=== PATIENT | male | born 1960 | race Caucasian/White ===

== ENCOUNTER 2019-01-11 12:23 | Emergency (ER) | payer BC ==
--- OUTSIDE RECORDS SUMMARY | 2019-01-11 12:34 | XMS REPORT ---
:1960 Author Organization eClinicalWorks Care Team Providers Name Role Phone Violeta Ortezh Provider Role Unavailable Allergies, Adverse Reactions, Alerts Substance Reaction Event Type N.K.D.A. 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 Problem Gastro-esophageal reflux disease K21.9 Active without esophagitis Problem Gastritis K29.70 Active Problem Obesity (BMI 30-39.9) E66.9 Active Assessment Noncompliance w/medication Z91.14 Active treatment due to intermit use of medication 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 Assessment Hyperlipidemia E78.5 Active Assessment Obstructive sleep apnea G47.33 Active Assessment Benign essential HTN I10 Active Assessment Tobacco use disorder F17.200 Active Medications Medication Code Code Instructions Start End Status Dosage System Date Date [facility] 40465146775 5 Active 1 EACH ONCE A DAY ORALLY Singulair [facility] 04304913398 10 MG Orally Active 1 tablet Once a day in the evening Chantix [facility] 27960799103 1 MG Orally Aug 08October Active 1 tablet Continuing Twice a day 2017 Month 2019 ProAir HFA [facility] 29576685736 108 (90 Base) Active 2 puffs MCG/ACT Inhalation every 4-6 hrs [facility]n [facility] 5 MG Orally Active 1 tablet Once a day Lisinopril [facility] 20098683912 40 Active TAKE 1 TABLET BY MOUTH EVERY DAY Crestor [facility] 45743952895 10 MG Orally Active 1 tablet Once a day Dexilant [facility] 56174571444 60 MG Orally Active 1 capsule Once a day Chantix [facility] [address]-28 Active not Starting Month Antwon Chantix [facility] 62793104429 0.5 MG X 11 & 1 Inactive not Starting Month MG X 42 Orally defined Antwon Flonase [facility] 16792860556 50 MCG/ACT Active 1 spray Nasally Once a in each day nostril Zyrtec Allergy [facility] 22513446111 10 MG Orally Active 1 tablet Once a day Lisinopril [facility] 92948962528 40 MG Orally Active 1 tablet Once a day Gemfibrozil [facility] 32119013379 600 MG Orally Active 1 tablet Twice a day Results No Known Results Summary Purpose eClinicalWorks Submission
--- OUTSIDE RECORDS SUMMARY | 2019-01-11 12:34 | XMS REPORT ---
:1960 [facility] Address [address] [place] [address] Dr. [address] [place] [address] Care Team Providers Name Role Phone YENNI LEE Unavailable Unavailable Problems This patient has no known problems. Allergies, Adverse Reactions, Alerts This patient has no known allergies or adverse reactions. Medications This patient has no known medications. Results Test Description Test Time Test Comments Text Results Atomic Results Result Comments TISSUE EXAM 2018-12-28 09:06:00 Surgical Pathology Report Case: [id number] Authorizing Provider: Yenni Lee MD Collected: 12/21/2018 1025 Ordering Location: [facility] Received: 12/21/2018 1118 SERVICES Pathologist: Philippe Jacobo MD Specimen: Adrenal, Right PART A RIGHT ADRENAL, ADRENALECTOMY (45.7 G):ADRENOCORTICAL ADENOMA WITH CYSTIC DEGENERATION.NEGATIVE FOR MALIGNANCY. Signing Pathologist Direct Phone Line: [phone] signed by Philippe Jacobo MD on 12/28/2018 at 9:06 AMImmunohistochemical studies performed on block A4 demonstrate the adrenal cortical cells to be positive for calretinin, inhibin, and synaptophysin (partial). They are negative for PAX8 and S100. CD68 is positive in scattered macrophages.This case was reviewed with Dr. Sly Back, who concurs with the above interpretation. 05209, 73253, [id number] adrenalectomy, laparoscopic right adrenalectomy. Preoperative and postoperative diagnosis is renal mass, rightAdrenal, right tissue Received in formalin labeled "adrenal right" is a 45.7 gm, 8.5 x 3.5 x 3.5 cm adrenal gland with attached adipose tissue measuring 4 x 3 x 0.8 cm. The central portion of the specimen is fragmented to reveal central protruding red-brown tissue. The specimen is serially sectioned to reveal a clarke-yellow, ovoid, encapsulated, subcortical to medullary mass, which measures 4.5 x 3.2 x 2.5 cm. The specimen is 25% multiloculated cystic with the chambers containing burr-brown solid to friable and possibly fibrinous material. The mass abuts the inked margin.The cortex measures 0.2 cm thick. The medullary region measures 0.5 cm thick. There are no solid nodules or lymph nodes seen within the attached adipose tissue.Ink code: Margin is inked leo.Printing Equipment Mechanic sections are submitted from the specimen.Section code: A1-A2, cortical portion of tumor; A3, cortical to medullary portion of tumor to include multiloculated portion of the specimen; A4, additional tumor with attached margin; A5-A6, central portion of tumor; A7, normal adrenal gland.Gross photographs are taken. KM/ewPerformed. The interpretation of this case included the use of immunohistochemistry or special stains.BLOCK A4- INHIBIN, CALRETININ, SYNAPTOPHYSIN, CD68, S100, AFE6Lopivpr Slides Examined: In-house known positive controls were evaluated along with the test tissue. These control slides run alongside of the patients sample show appropriate staining. Internal positive and negative controls when available are evaluated Immunohistochemistry technical testing was performed at [facility], Pathology Laboratory where it was developed and its performance characteristics were determined. It has not been cleared or approved by the U.S. Food and Drug Administration. The FDA has determined that such clearance or approval is not necessary. The test is used for clinical purposes. It should not be regarded as investigational or for research. This laboratory is certified under the Clinical Laboratory Improvement Amendments of 1988 (CLIA-88) as qualified to perform high complexity clinical laboratory testing. ELECTROLYTES 2018-12-18 14:40:00 Test Item Value Reference Range Comments SODIUM (BEAKER) (test snxx=875) 137 meq/L 136-145 POTASSIUM (BEAKER) (test vqhz=885) 4.3 meq/L 3.5-5.1 Specimen slightly hemolyzed CHLORIDE (BEAKER) (test dslk=598) 102 meq/L 98-107 CO2 (BEAKER) (test ldcj=509) 24 meq/L 22-29 BUN AND [id number] 14:40:00 Test Item Value Reference Range Comments BLOOD UREA NITROGEN 14 mg/dL 7-21 (BEAKER) (test knnx=928) CREATININE (BEAKER) (test 1.00 mg/dL 0.57-1.25 Specimen slightly atyq=259) hemolyzed EGFR (BEAKER) (test 77 mL/min/1.73 sq m ESTIMATED GFR IS NOT syss=2544) ACCURATE CREATININE CLEARANCE IN PREDICTING GLOMERULAR FILTRATION RATE. ESTIMATED GFR IS NOT APPLICABLE FOR DIALYSIS PATIENTS. [id number] 14:23:00 Test Item Value Reference Range Comments HEMOGLOBIN (BEAKER) (test tblr=338) 12.9 GM/DL 13.7-17.5
--- OUTSIDE RECORDS SUMMARY | 2019-01-11 12:34 | XMS REPORT | Clinical Summary ---
:1960 Author Organization [facility] Address [address] [place] [address] Care Team Providers Name Role Phone Tanvir Ortez DO Primary Care Provider Allergies No Known Allergies Medications Medication Sig Dispensed Refills Start Date End Date Status amLODIPine (NORVASC) Take 5 mg by 0 Active 5 MG tablet mouth daily. dexlansoprazole 60 mg Take 60 mg by 0 Active capsule mouth daily. gemfibrozil (LOPID) Take 600 mg 0 Active 600 MG tablet by mouth 2 (two) times daily before meals. lisinopril Take 40 mg by 0 Active (PRINIVIL,ZESTRIL) 40 mouth daily. MG tablet montelukast Take 10 mg by 0 Active (SINGULAIR) 10 mg mouth tablet nightly. rosuvastatin Take 10 mg by 0 Active (CRESTOR) 10 MG mouth daily. tablet varenicline (CHANTIX) Take 1 mg by 0 Active 1 mg tablet mouth daily Give with meals and with a full glass of water. . traMADol (ULTRAM) 50 Take 2 35 tablet 0 12/22/2018 Active mg tablet tablets (100 mg total) by mouth every 6 (six) hours as needed for up to 30 doses. Max Daily Amount: 400 mg traMADol (ULTRAM) 50 Take 2 30 tablet 0 12/22/2018 Discontinued mg tablet tablets (100 9 mg total) by mouth every 6 (six) hours as needed for up to 30 doses. Max Daily Amount: 400 mg Active Problems Problem Noted Date Right adrenal mass 12/21/2018 Encounters Date Type Specialty Care Team Description 12/21/2018 Surgery Pavel Luo LAPAROSCOPY,ADRENAL H, ECTOMY 12/21/2018 Anesthesia Event Sharri Teran CRNA 12/21/2018 - Hospital Encounter General Internal Pavel Luo 12/22/2018 Medicine MD Olivia 12/18/2018 Hospital Encounter Cardiology Pavel Luo MD 12/18/2018 Hospital Encounter Pre-Admission Pavel Luo MD 12/18/2018 Orders Only General Internal Medicine 12/13/2018 Hospital Encounter Pre-Admission Resource, Oqmt Testing Preadmit Phone after 01/10/2018 Social History Tobacco Use Types Packs/Day Years Used Date Former Smoker Smokeless Tobacco: Never Used Comments: quit 07/2018 Alcohol Use Drinks/Week oz/Week Comments Yes 28 Shots of liquor 16.8 Sex Assigned at Date Recorded Not on file Job Start Date Occupation Industry Not on file Not on file Not on file Travel History Travel Start Travel End No recent travel history available. Last Filed Vital Signs Vital Sign Reading Time Taken Blood Pressure 124/78 12/22/2018 9:03 AM CDT Pulse 89 12/22/2018 9:03 AM CDT Temperature 35.9 C (96.6 F) 12/22/2018 9:03 AM CDT Respiratory Rate 21 12/22/2018 9:03 AM CDT Oxygen Saturation 95% 12/22/2018 9:03 AM CDT Inhaled Oxygen Concentration - - Weight 131 kg (288 lb 12.8 oz) 12/21/2018 6:09 AM CDT Height 185.4 cm (6' 1") 12/21/2018 6:09 AM CDT Body Mass Index 38.1 12/21/2018 6:09 AM CDT Plan of Treatment Not on file Procedures Procedure Name Priority Date/Time Associated Comments Diagnosis RHYTHM STRIP - SCAN 12/25/2018 4:20 PM CDT TRANSFUSION SERVICE 12/22/2018 6:00 REPORT - SCAN PM CDT TISSUE EXAM AP Routine 12/21/2018 10:25 Results for this AM CDT procedure are in the results section. LAPAROSCOPY,ADRENALE 12/21/2018 8:00 Adrenal mass, right CTOMY AM CDT (HCC) Case Notes 3 HRS PER [facility] STAT 12/21/2018 6:47 AM CDT TRANSFUSION SERVICE REPORT 12/19/2018 6:21 PM CDT - SCAN ECG 12-LEAD Routine 12/18/2018 2:08 PM CDT Procedure Note - Interface, External Ris In - 12/18/2018 4:25 PM CDT Ventricular Rate 108 BPM Atrial Rate 108 BPM P-R Interval 174 ms QRS Duration 80 ms Q-T Interval 322 ms QTC Calculation(Bazett) 431 ms P [place] 55 degrees R [place] 14 degrees T [place] 53 degrees Sinus tachycardia Otherwise normal ECG When compared with ECG of 14-JAN-2006 09:33, Vent. rate has increased BY 39 BPM ECG 12-LEAD Routine 12/18/2018 2:08 PM CDT TYPE AND SCREEN, AUTOMATED Routine 12/18/2018 2:05 PM CDT HEMOGLOBIN Routine 12/18/2018 2:05 PM CDT ELECTROLYTE PANEL Routine 12/18/2018 2:05 PM CDT BUN AND CREATININE Routine 12/18/2018 2:05 PM CDT after 01/10/2018 Results RHYTHM STRIP - SCAN (12/25/2018 4:20 PM CDT) Narrative Performed At TRANSFUSION SERVICE REPORT - SCAN (12/22/2018 6:00 PM CDT)Only the most recent of2 resultswithin the time period is included. Narrative Performed At Tissue Exam (12/21/2018 10:25 AM CDT) Case Report Surgical Pathology Report Case: [id number] [facility] Authorizing Provider:Pavel Luo MD Collected: 12/21/2018 1025 [facility] Ordering Location: [facility] PERIOPERATIVE Received: 12/21/2018 1118 SERVICES Pathologist: Philippe Jacobo MD Specimen:Adrenal, Right DIAGNOSIS PART A RIGHT ADRENAL, ADRENALECTOMY (45.7 G): [facility] ADRENOCORTICAL ADENOMA WITH CYSTIC DEGENERATION. [facility] NEGATIVE FOR MALIGNANCY. Signing Pathologist Direct Phone Line: [phone] COMMENT Immunohistochemical studies performed on block A4 demonstrate the adrenal cortical cells to be positive for calretinin, inhibin, and synaptophysin (partial). They are negative for PAX8 and S100. CD68 is positive in scattered macrophages. [facility] This case was reviewed with Dr. Sly Back, who concurs with the above interpretation. CPT Code(s) 42920, 00967, 50078i5 [facility] CLINICAL HISTORY Laparoscopic adrenalectomy, [facility] laparoscopic right [facility] adrenalectomy. Preoperative and postoperative diagnosis is renal mass, right SPECIMEN SOURCE Adrenal, right tissue [facility] GROSS DESCRIPTION Received in formalin labeled "adrenal right" is a 45.7 gm, 8.5 x 3.5 x 3.5 cm adrenal gland with attached adipose tissue measuring 4 x 3 x 0.8 cm. The central portion of the specimen is fragmented to re [facility] veal central protruding red-brown tissue. The specimen is serially sectioned to reveal a clarke-yellow, ovoid, encapsulated, subcortical to medullary mass, which measures 4.5 x 3.2 x 2.5 cm. The specime [facility] n is 25% multiloculated cystic with the chambers containing burr-brown solid to friable and possibly fibrinous material. The mass abuts the inked margin. The cortex measures 0.2 cm thick. The medullary region measures 0.5 cm thick. There are no solid nodules or lymph nodes seen within the attached adipose tissue. Ink code: Margin is inked leo. Hvac Design Mechanical Engineer sections are submitted from the specimen. Section code: A1-A2, cortical portion of tumor; A3, cortical to medullary portion of tumor to include multiloculated portion of the specimen; A4, additional tumor with attached margin; A5-A6, central portion of tumor; A7, normal adrenal gland. Gross photographs are taken. KM/ew MICROSCOPIC DESCRIPTION Performed. [facility] SPECIAL STUDIES The interpretation of this case included the use of immunohistochemistry or special stains. [facility] BLOCK A4- INHIBIN, CALRETININ, SYNAPTOPHYSIN, CD68, S100, PAX8 [facility] Control Slides Examined: In-house known positive controls were evaluated along with the test tissue. These control slides run alongside of the patients sample show appropriate staining. Internal posit cisco and negative controls when available are evaluated Immunohistochemistry technical testing was performed at [facility], Pathology Laboratory where it was developed and its performance characteristics were determined. It has not be en cleared or approved by the U.S. Food and Drug Administration. The FDA has determined that such clearance or approval is not necessary. The test is used for clinical purposes. It should not be regarde d as investigational or for research. This laboratory is certified under the Clinical Laboratory Improvement Amendments of 1988 (CLIA-88) as qualified to perform high complexity clinical laboratory testing. Specimen Tissue Performing Organization Address City/[facility]/Zipcode Phone Number [address] [address] [phone] CENTER [place], manual (12/21/2018 6:47 AM CDT) ABO Grouping O [facility] Rh Factor POS [facility] Specimen Blood Performing Organization Address [facility] [place] Phone Number [address] [address] [phone] ECG 12 lead (12/18/2018 2:08 PM CDT) Specimen Narrative Performed At Ventricular Rate 108 BPM GE MUSE Atrial Rate 108 BPM P-R Interval 174 ms QRS Duration 80 ms Q-T Interval 322 ms QTC Calculation(Bazett) 431 ms P [place] 55 degrees R [place] 14 degrees T [place] 53 degrees Sinus tachycardia Nonspecific ST abnormality When compared with ECG of 14-JAN-2006 09:33, Vent. rate has increased BY39 BPM Confirmed by Moi MARTINEZ BASANT ([id number]) on 12/19/2018 7:10:33 AM Procedure Note Interface, External Ris In - 12/19/2018 7:10 AM CDT Ventricular Rate 108 BPM Atrial Rate 108 BPM P-R Interval 174 ms QRS Duration 80 ms Q-T Interval 322 ms QTC Calculation(Bazett) 431 ms P [place] 55 degrees R [place] 14 degrees T [place] 53 degrees Sinus tachycardia Nonspecific ST abnormality When compared with ECG of 14-JAN-2006 09:33, Vent. rate has increased BY 39 BPM Confirmed by Moi MARTINEZ BASANT ([id number]) on 12/19/2018 7:10:33 AM Performing Organization Address City/[facility] Phone Number GE MUSE Type and screen, automated (12/18/2018 2:05 PM CDT) ABO/RH AUTOMATED (BEAKER) O POSITIVE [facility] Ab Scrn NEGATIVE [facility] Specimen Blood Performing Organization Address City/State/Zipcode Phone Number [address] [address] BUN and Creatinine (12/18/2018 2:05 PM CDT) BUN 14 7 - 21 mg/dL [facility] Creatinine 1.00Comment: Specimen 0.57 - 1.25 mg/dL [facility] slightly hemolyzed [facility] EGFR 77Comment: ESTIMATED GFR IS mL/min/1.73 sq m [facility] NOT ACCURATE CREATININE [facility] CENTER CLEARANCE IN PREDICTING GLOMERULAR FILTRATION RATE. ESTIMATED GFR IS NOT APPLICABLE FOR DIALYSIS PATIENTS. Specimen Blood Performing Organization Address City/[facility]/Zipcode Phone Number [address] [address] [phone] CENTER Hemoglobin (12/18/2018 2:05 PM CDT) Hemoglobin 12.9 (L) 13.7 - 17.5 GM/DL [facility] Specimen Blood Performing Organization Address City/[facility]/Zipcode Phone Number [address] [address] [phone] CENTER Electrolytes (12/18/2018 2:05 PM CDT) Sodium 137 136 - 145 meq/L [facility] Potassium 4.3Comment: Specimen slightly 3.5 - 5.1 meq/L [facility] hemolyzed [facility] Chloride 102 98 - 107 meq/L [facility] CO2 24 22 - 29 meq/L [facility] Specimen Blood Performing Organization Address City/State/Zipcode Phone Number [address] [address] [phone] CENTER after 01/10/2018 Insurance Payer Benefit Plan / Subscriber ID Type Phone Address Group BLUE CROSS/BLUE BCBS PPO POS EPO xxxxxxxxxxxx PPO [phone] [address] [place] [address] Advance Directives For more information, please contact:[address] [phone] Code Status Date Activated Date Inactivated Comments Full Code 12/21/2018 1:30 PM 12/22/2018 1:56 PM This code status was determined by: Patient Full Code 12/21/2018 6:29 AM 12/21/2018 1:30 PM This code status was determined by: Patient
--- OUTSIDE RECORDS SUMMARY | 2019-01-11 12:35 | XMS REPORT ---
:1960 Author Organization eClinicalWorks Care Team Providers Name Role Phone Pérez [facility] Provider Role Unavailable Allergies, Adverse Reactions, Alerts Substance Reaction Event Type N.K.D.A. 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 Problem Gastro-esophageal reflux disease K21.9 Active without esophagitis Problem Allergic rhinitis, unspecified J30.9 Active seasonality, unspecified trigger Problem Alcohol abuse F10.10 Active Assessment Benign essential HTN I10 Active Assessment 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 23846766372 10 MG Orally Active 1 tablet Once a day in the evening Gemfibrozil [facility] 26161800819 600 Orally Twice Active 1 tablet a day ProAir HFA [facility] 55594684256 108 (90 Base) Active 2 puffs MCG/ACT Inhalation every 4-6 hrs prn Lisinopril [facility] 23885176583 40 MG Orally Active 1 tablet Once a day Norvasc [facility] 77815987480 5 MG Orally Once Active 1 tablet a day Chantix [facility] 87218097828 1 MG Orally Active 1 tablet Continuing Twice a day Month [facility]25868 10 Orally Once a Active 1 tablet day Dexilant [facility] 90636677805 60 MG Orally Active 1 capsule Once a day Montelukast [facility] 44661314575 10 MG Orally Oct 04, Active 1 tablet Sodium Once a day 2018 Zyrtec Allergy [facility] 49546922281 10 MG Orally Active 1 tablet Once a day Flonase [facility] 42264352167 50 MCG/ACT Active 1 spray in Nasally Once a each day nostril Gemfibrozil [facility] 24370083524 600 MG Orally Active 1 tablet Twice a day Results No Known Results Summary Purpose eClinicalWorks Submission
--- OUTSIDE RECORDS SUMMARY | 2019-01-11 12:35 | XMS REPORT ---
:1960 Author Organization eClinicalWorks Care Team Providers Name Role Phone Pérez Tanvir Provider Role Unavailable Allergies No Known Allergies Problems Problem Type Condition Code Onset Dates Condition Status Problem Allergic rhinitis J30.9 Active Problem Tobacco use disorder F17.200 Active Problem Hyperlipidemia E78.5 Active Problem Obesity (BMI 30-39.9) E66.9 Active Problem Gastritis K29.70 Active Problem Benign essential HTN I10 Active Problem Allergic rhinitis, unspecified J30.9 Active seasonality, unspecified trigger Problem Alcohol abuse F10.10 Active Problem Adrenal mass E27.9 Active Problem Obstructive sleep apnea G47.33 Active Problem Tubular adenoma D36.9 Active 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
--- OUTSIDE RECORDS SUMMARY | 2019-01-11 12:35 | XMS REPORT ---
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 Problem Allergic rhinitis, unspecified J30.9 Active seasonality, unspecified trigger Problem Tubular adenoma D36.9 Active Problem Tobacco use disorder F17.200 Active Problem Gastro-esophageal reflux disease K21.9 Active without esophagitis Problem Obstructive sleep apnea G47.33 Active Medications Medication Code Code Instructions Start End Date Status Dosage System Date Azithromycin [facility] 62486931771 250 MG Orally Oct 10, Oct 15, Active 2 tablets Once a day 2018 2018 on the first day, then 1 tablet daily for 4 days Results No Known Results Summary Purpose eClinicalWorks Submission
--- OUTSIDE RECORDS SUMMARY | 2019-01-11 12:35 | XMS REPORT ---
:1960 Author Organization eClinicalWorks Care Team Providers Name Role Phone OrtezVioletah Provider Role Unavailable Allergies, Adverse Reactions, Alerts Substance Reaction Event Type N.K.D.A. 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 Assessment Encounter for screening for lung Z12.2 Active cancer Problem Allergic rhinitis, unspecified J30.9 Active seasonality, unspecified trigger Problem Tubular adenoma D36.9 Active Problem Tobacco use disorder F17.200 Active Problem Gastro-esophageal reflux disease K21.9 Active without esophagitis Problem Obstructive sleep apnea G47.33 Active Assessment Tobacco use disorder F17.200 Active 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 Assessment Noncompliance w/medication Z91.14 Active treatment due to intermit use of medication Assessment Obstructive sleep apnea G47.33 Active Assessment Well adult health check Z00.00 Active Assessment Hyperlipidemia E78.5 Active Problem Obesity (BMI 30-39.9) E66.9 Active Assessment Benign essential HTN I10 Active Problem Gastritis K29.70 Active Medications Medication Code Code Instructions Start End Status Dosage System Date Date Zyrtec Allergy [facility] NAMED [facility] 17467763579 10 MG Orally Active 1 tablet Once a day Singulair FORMER[facility] NAMED [facility] 15726521859 10 MG Orally Active 1 tablet Once a day in the evening Crestor FORMERLY NAMED [facility] 87972490163 10 MG Orally Active 1 tablet Once a day Norvasc FORMER[facility] NAMED [facility] 05375940998 5 MG Orally Active 1 tablet Once a day Lisinopril FORMER[facility] NAMED [facility] 13757575181 40 Orally Once Active 1 tablet a day Gemfibrozil FORMERLY NAMED [facility] 64382879115 600 Orally Active 1 tablet Twice a day Crestor FORMER[facility] NAMED [facility] 21017738436 10 Orally Once Active 1 tablet a day Chantix FORMERLY NAMED [facility] [address]-24 Active not Starting Month defined Antwon Lisinopril FORMERLY NAMED [facility] 78703794875 40 MG Orally Active 1 tablet Once a day Gemfibrozil FORMERLY NAMED [facility] 07098976339 600 MG Orally Active 1 tablet Twice a day Dexilant [facility] NAMED [facility] 55810716117 60 MG Orally Active 1 capsule Once a day ProAir HFA FORMER[facility] NAMED [facility] 70359137698 108 (90 Base) Active 2 puffs MCG/ACT Inhalation every 4-6 hrs prn Montelukast FORMERLY NAMED [facility] 71952150876 10 MG Orally Oct 04, Active 1 tablet Sodium Once a day 2018 Norvasc FORMER[facility] NAMED [facility] 87841366958 5 Orally Once a Active 1 tablet day Chantix FORMERLY NAMED [facility] 21425552431 1 MG Orally Active 1 tablet Continuing Twice a day Month Antwon Flonase FORMERLY NAMED [facility] 91509136458 50 MCG/ACT Active 1 spray in Nasally Once a each day nostril Results No Known Results Summary Purpose eClinicalWorks Submission
--- OUTSIDE RECORDS SUMMARY | 2019-01-11 12:35 | XMS REPORT ---
:1960 Author Organization eClinicalWorks Care Team Providers Name Role Phone OrtezVioletah Provider Role Unavailable Allergies No Known Allergies [...] Problem Obstructive sleep apnea G47.33 Active Medications No Known Medications Results No Known Results Summary Purpose eClinicalWorks Submission
--- OUTSIDE RECORDS SUMMARY | 2019-01-11 12:35 | XMS REPORT ---
:1960 Author Organization eClinicalWorks Care Team Providers Name Role Phone Pérez Tanvir Provider Role Unavailable Allergies, Adverse Reactions, Alerts Substance Reaction Event Type N.K.D.A. Info Not Available Non Drug Allergy Problems Problem Type Condition Code Onset Dates Condition Status Problem Benign essential HTN I10 Active Problem Hyperlipidemia E78.5 Active Problem Allergic rhinitis J30.9 Active Assessment Allergic rhinitis, unspecified J30.9 Active seasonality, unspecified trigger Problem Obesity (BMI 30-39.9) E66.9 Active Problem [...] Start End Status Dosage System Date Date Lisinopril [facility] 40479329639 40 Orally Once Active 1 tablet a day [facility] 96455749416 5 Orally Once a Active 1 tablet day Crestor [facility] 76248093227 10 MG Orally Active 1 tablet Once a day Dexilant [facility] 97802810695 60 MG Orally Active 1 capsule Once a day Crestor [facility] 65516303965 10 Orally Once Active 1 tablet a day ProAir HFA [facility] 82877802267 108 (90 Base) Active 2 puffs MCG/ACT Inhalation every 4-6 hrs prn Chantix [facility] [address]-64 Active not Starting Month defined Antwon Flonase [facility] 30851808416 50 MCG/ACT Active 1 spray in Nasally Once a each day nostril Singulair [facility] 47639719195 10 MG Orally Active 1 tablet Once a day in the [facility] 5 MG Orally Active 1 tablet Once a day Lisinopril [facility] 20808326278 40 MG Orally Active 1 tablet Once a day Gemfibrozil [facility] 47053244528 600 MG Orally Active 1 tablet Twice a day Gemfibrozil [facility] 32257597685 600 Orally Active 1 tablet Twice a day Chantix [facility] 48350868493 1 MG Orally Active 1 tablet Continuing Twice a day Montelukast [facility] 18688082737 10 MG Orally Oct 04, Active 1 tablet Sodium Once a day 2018 Zyrtec Allergy [facility] 25204852269 10 MG Orally Active 1 tablet Once a day Results No Known Results Summary Purpose eClinicalWorks Submission
--- OUTSIDE RECORDS SUMMARY | 2019-01-11 12:35 | XMS REPORT ---
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
--- OUTSIDE RECORDS SUMMARY | 2019-01-11 12:35 | XMS REPORT ---
:1960 Author Organization eClinicalWorks Care Team Providers Name Role Phone Violeta Ortezh Provider Role Unavailable Allergies, Adverse Reactions, Alerts Substance Reaction Event Type N.K.D.A. Info Not Available Non Drug Allergy Problems Problem Type Condition Code Onset Dates Condition Status Problem Tubular adenoma D36.9 Active Problem Gastro-esophageal reflux disease K21.9 Active without esophagitis Problem Obstructive sleep apnea G47.33 Active Assessment Upper respiratory tract infection, J06.9 Active unspecified type Assessment Allergic rhinitis, unspecified J30.9 Active seasonality, unspecified trigger Problem Tobacco use disorder F17.200 Active Problem Hyperlipidemia E78.5 Active Problem Allergic rhinitis J30.9 Active Problem Allergic rhinitis, unspecified J30.9 Active seasonality, unspecified trigger Problem Obesity (BMI 30-39.9) E66.9 Active 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 Problem Benign essential HTN I10 Active Problem Gastritis K29.70 Active Medications Medication Code Code Instructions Start End Date Status Dosage System Date [facility] 98302228421 5 MG Orally Active 1 tablet Once a day Dexilant [facility] 76528434416 60 MG Orally Active 1 capsule Once a day [facility] 80038009514 10 Orally Once Active [facility] tablet [facility] 940[facility]99 5 Orally Once a Active 1 tablet day Singulair [facility] 85133232290 10 MG Orally Active 1 tablet Once a day in the evening Montelukast [facility] 18456702246 10 MG Orally Oct 04, Active 1 tablet Sodium Once a day 2018 Chantix [facility] [address]-89 Active not Starting Month defined Antwon Gemfibrozil [facility] 33142064151 600 MG Orally Active 1 tablet Twice a day Crestor [facility] 15661263248 10 MG Orally Active 1 tablet Once a day Lisinopril [facility] 37826129718 40 Orally Once Active 1 tablet a day Chantix [facility] 07958758246 1 MG Orally Aug 08October Active 1 tablet Continuing Twice a day 2017 Month Antwon Gemfibrozil [facility] 26930471807 600 Orally Active 1 tablet Twice a day Zyrtec Allergy [facility] 60124766014 10 MG Orally Active 1 tablet Once a day Flonase [facility] 01177046551 50 MCG/ACT Active 1 spray in Nasally Once a each day nostril ProAir HFA [facility] 11448575265 108 (90 Base) Active 2 puffs MCG/ACT Inhalation every 4-6 hrs prn Lisinopril [facility] 84394207288 40 MG Orally Active 1 tablet Once a day Results No Known Results Summary Purpose eClinicalWorks Submission
[2019-01-11] MEDS ORDERED: MORPHINE 2 MG/ML SYR ONE (15:43)
[2019-01-11] MEDS ORDERED: ONDANSETRON 4 MG/2 ML VIAL ONE (15:43)
[2019-01-11 15:47] LABS: Absolute Lymphocytes (CBC) 1.6 K/uL (0.7-4.9); Absolute Monocytes 0.7 K/uL (0.1-1.3); Absolute Neutrophil 5.5 K/uL (1.8-8.0); Basophils % 0.9 % (0-1.3); Eosinophils % 5.7 % (0-4.4); Hematocrit 41.2 % (39.6-49.0); Lymphocytes % 18.6 % (15.3-44.8); MPV 6.9 fL (7.6-11.3); Monocytes % 8.9 % (3.3-12.3); RBC Red Blood Cell Count 4.41 M/uL (4.33-5.43)
[2019-01-11 16:08] LABS: Albumin 3.9 g/dL (3.4-5.0); Bilirubin Direct 0.2 mg/dL (0-0.2); Bilirubin Total 0.7 mg/dL (0.2-1.0); Potassium 4.2 mmol/L (3.5-5.1); Protein, Total 8.1 g/dL (6.4-8.2)
[2019-01-11] MEDS ORDERED: NA CHLORIDE 0.9% 1,000 ML ONE (17:11)
--- NOTE | 2019-01-11 17:22 | RAD REPORT ---
EXAM DESCRIPTION: CT - Abdomen Pelvis W Contrast - 01/11/2019 4:38 pm CLINICAL HISTORY: Abdominal pain right sided pain. COMPARISON: October 2018 MRI TECHNIQUE: Computed axial tomography of the abdomen pelvis was obtained. 100 cc Isovue-300 was admin istered intravenously. Oral contrast was not requested which limits evaluation of bowel. All CT scans are performed using dose optimization technique as appropriate and may include automated exposure control or mA/KV adjustment according to patient size. FINDINGS: Hepatic cysts Spleen, pancreas and left adrenal gland are unremarkable. Right adrenalectomy. 2 x 1 centimeter soft tissue structure is present within the region of the right adrenal gland abutting the liver Renal cysts There is no evidence of diverticulitis. Unremarkable appendix Right inguinal hernia contains fat IMPRESSION: A right inguinal hernia Right adrenalectomy. 2 x 1 centimeter soft tissue structure within the region of the right adrenal gl and abuts the liver and may represent residual mass
[2019-01-11 17:32] LABS: Urine Blood NEGATIVE (NEG); Urine Glucose NEGATIVE (NEG); Urine Protein NEGATIVE (NEG)
[2019-01-11] MEDS ORDERED: MORPHINE 4 MG/ML SYR ONE (17:38)
--- NOTE | 2019-01-11 18:03 | EDPHYS ---
Physician Documentation [facility] Name: José Miguel Burns Age: 58 yrs Sex: Male : 1960 Arrival Date: 01/11/2019 Time: 12:24 Bed 18 Private MD: Tanvir Ortez ED Physician Steve Pineda HPI: 01/11 15:16 This 58 yrs old Male presents to ER via Ambulatory with complaints of Flank jmm Pain. 15:16 The patient complains of pain in the right flank. Onset: The symptoms/episode jmm began/occurred gradually, 3 day(s) ago. Associated signs and symptoms: Pertinent positives: vomiting. This is a 58 year old male with a history of htn, hlp that presents to the ED with complaints of right flank pain beginning 3 days ago. Patient is s/p adrenal mass removal on december 21 of this month. patient denies much pain since the surgery. Patient states this past Tuesday develop vomiting and right flank pain. Patient states the pain radiates to his right lower quadrant. Patient denies fever. . Historical: - Allergies: 12:44 No Known Allergies; tw2 - Home Meds: 12:44 lisinopril 20 mg Oral tab 1 tab once daily [Active]; amlodipine 10 mg tab 1 tab once tw2 daily [Active]; Crestor 20 mg oral tab 1 tab once daily [Active]; "another cholesterol medication" [Active]; montelukast 10 mg oral tab 1 tab once daily [Active]; Dexilant 60 mg oral CpDB 1 cap once daily [Active]; - PMHx: 12:44 Hypertension; Hyperlipidemia; tw2 - PSHx: 12:44 adrenalectomy; right ankle; left wrist; right rotator cuff; Fundoplication for my GERD; tw2 Cholecystectomy; - Immunization history:: Adult Immunizations. - Social history:: Smoking status: . - Ebola Screening: : Patient denies travel to an Ebola-affected area in the 21 days before illness onset. ROS: 15:16 Constitutional: Negative for fever, chills, and weight loss, Cardiovascular: Negative jmm for chest pain, palpitations, and edema, Respiratory: Negative for shortness of breath, cough, wheezing, and pleuritic chest pain. 15:16 Abdomen/GI: Positive for abdominal pain, nausea and vomiting. 15:16 Back: Positive for flank pain, on the right. 15:16 All other systems are negative. Exam: 15:16 Head/Face: atraumatic. Eyes: EOMI, no conjunctival erythema appreciated ENT: Moist jm Mucus Membranes Neck: Trachea midline, Supple Chest/axilla: Normal chest wall appearance and motion. Cardiovascular: Regular rate and rhythm. No edema appreciated Respiratory: Normal respirations, no respiratory distress appreciated 15:16 Constitutional: The patient appears in no acute distress, alert, awake. 15:16 Abdomen/GI: surgical incisions appear to be well healed. no surrounding erythema appreciated, abdomen is obese, mild right lower abdominal pain on palpation, soft. 15:16 Back: CVA tenderness, that is mild, is noted bilaterally. 15:16 Musculoskeletal/extremity: ROM: intact in all extremities. 15:16 Neuro: Orientation: is normal, Mentation: is normal, Memory: is normal. 15:16 Psych: Behavior/mood is pleasant, cooperative. Vital Signs: 12:39 BP 153 / 88; Pulse 109; Resp 18; Temp 97.6(TE); Pulse Ox 95% on R/A; Weight 131.54 kg tw2 (R); Height 6 ft. 1 in. (185.42 cm); Pain 8/10; 15:51 BP 133 / 87; Pulse 94; Resp 16; Pulse Ox 97% ; bp 17:49 BP 130 / 82; Pulse 92; Resp 14; Pulse Ox 96% ; bp 12:39 Body Mass Index 38.26 (131.54 kg, 185.42 cm) tw2 12:39 it does go up to a 10 tw2 MDM: 15:16 Patient medically screened. [facility] 18:00 Data reviewed: vital signs, nurses notes. Counseling: I had a detailed discussion with [facility] the patient and/or guardian regarding: the historical points, exam findings, and any diagnostic results supporting the discharge/admit diagnosis, lab results, radiology results, the need for outpatient follow up, to return to the emergency department if symptoms worsen or persist or if there are any questions or concerns that arise at home. ED course: Pain mildly relieved in the ED. I discussed results with the patient along with the need to follow up with his surgeon for reevaluation. Patient understood and agrees with the plan of care. Patient otherwise given strict return precautions. . 01/11 15:17 Order name: Basic Metabolic Panel; Complete Time: 16:13 [facility] 01/11 15:17 Order name: CBC with Diff; Complete Time: 16:13 [facility] 01/11 15:17 Order name: Creatinine for Radiology; Complete Time: 16:13 [facility] 01/11 15:17 Order name: Hepatic Function; Complete Time: 16:13 [facility] 01/11 15:17 Order name: Lipase; Complete Time: 16:13 [facility] 01/11 15:31 Order name: Urine Dipstick--Ancillary (enter results); Complete Time: 17:36 01/11 15:17 Order name: IV Saline Lock; Complete Time: 15:34 [facility] 01/11 15:17 Order name: Labs collected and sent; Complete Time: 15:34 [facility] 01/11 15:17 Order name: Urine Dipstick-Ancillary (obtain specimen); Complete Time: 15:34 [facility] 01/11 15:21 Order name: CT Abd/Pelvis - W/Contrast; Complete Time: 17:26 [facility] Administered Medications: 15:30 Drug: morphine 2 mg Route: IVP; Site: right antecubital; bp 17:50 Follow up: Response: Pain is decreased bp 15:30 Drug: Zofran 4 mg Route: IVP; Site: right antecubital; bp 17:51 Follow up: Response: No adverse reaction bp 17:30 Drug: morphine 4 mg Route: IVP; Site: right antecubital; bp 17:51 Follow up: Response: Pain is decreased bp Disposition: 01/12 08:58 Co-signature as Attending Physician, Steve Pineda MD I agree with the assessment and kdr plan of care. Disposition: 01/11/19 18:02 Discharged to Home. Impression: Unspecified abdominal pain. - Condition is Stable. - Discharge Instructions: Abdominal Pain, Adult. - Prescriptions for Tylenol- Codeine #3 300-30 mg Oral Tablet - take 1 tablet by ORAL route every 6 hours As needed; 12 tablet. - Medication Reconciliation Form, Thank You Letter, Antibiotic Education, Prescription Opioid Use form. - Follow up: Private Physician; When: 2 - 3 days; Reason: Recheck today's complaints, Continuance of care, Re-evaluation by your physician. Follow up: Anders Murphy MD; When: 2 - 3 days; Reason: Recheck today's complaints, Continuance of care, Re-evaluation by your physician. Signatures: Dispatcher [employer] EDMS Steve Pineda MD MD kdr Mickail, Joel, PA PA jmm Wise, Tara, CHASE RN tw2 Diogenes Cordero RN RN bp Corrections: (The following items were deleted from the chart) 01/11 18:03 18:02 01/11/2019 18:02 Discharged to Home. Impression: Unspecified abdominal pain. [facility] Condition is Stable. Forms are Medication Reconciliation Form, Thank You Letter, Antibiotic Education, Prescription Opioid Use. Follow up: Private Physician; When: 2 - 3 days; Reason: Recheck today's complaints, Continuance of care, Re-evaluation by your physician. [facility] 18:16 18:03 01/11/2019 18:02 Discharged to Home. Impression: Unspecified abdominal pain. bp Condition is Stable. Discharge Instructions: Abdominal Pain, Adult. Prescriptions for Tylenol-Codeine #3 300-30 mg Oral Tablet - take 1 tablet by ORAL route every 6 hours As needed; 12 tablet. and Forms are Medication Reconciliation Form, Thank You Letter, Antibiotic Education, Prescription Opioid Use. Follow up: Private Physician; When: 2 - 3 days; Reason: Recheck today's complaints, Continuance of care, Re-evaluation by your physician. Follow up: Anders Murphy; When: 2 - 3 days; Reason: Recheck today's complaints, Continuance of care, Re-evaluation by your physician. [facility]
--- NOTE | 2019-01-11 18:03 | ER ---
Nurse's Notes [facility] Name: José Miguel Burns Age: 58 yrs Sex: Male : 1960 Arrival Date: 01/11/2019 Time: 12:24 Bed 18 Private MD: Tanvir Ortez Diagnosis: Unspecified abdominal pain Presentation: 01/11 12:37 Presenting complaint: Patient states: i am having a pain in my RIGHT side, and i am tw2 nauseous and vomited Tuesday night, i had my adrenal glad removed 12/21/18 because there was a tumor on it. Transition of care: patient was not received from another setting of care. Onset of symptoms was January 11, 2019. Risk Assessment: Do you want to hurt yourself or someone else? Patient reports no desire to harm self or others. Initial Sepsis Screen: Does the patient meet any 2 criteria? No. Patient's initial sepsis screen is negative. Does the patient have a suspected source of infection? No. Patient's initial sepsis screen is negative. Note everything was fine until this passed Tuesday and Aleve had helped but it just isnt helping. Care prior to arrival: None. 12:37 Method Of Arrival: Ambulatory tw2 12:37 Acuity: CARLY 3 tw2 Triage Assessment: 12:40 General: Appears in no apparent distress. obese, Behavior is calm, cooperative, tw2 appropriate for age. Pain: Complains of pain in back and abdomen Pain radiates to back. GI: Abdomen is round non-distended, obese, Reports upper abdominal pain, nausea. : Denies burning with urination, urinary frequency, urgency. Historical: - Allergies: 12:44 No Known Allergies; tw2 - Home Meds: 12:44 lisinopril 20 mg Oral tab 1 tab once daily [Active]; amlodipine 10 mg tab 1 tab once tw2 daily [Active]; Crestor 20 mg oral tab 1 tab once daily [Active]; "another cholesterol medication" [Active]; montelukast 10 mg oral tab 1 tab once daily [Active]; Dexilant 60 mg oral CpDB 1 cap once daily [Active]; - PMHx: 12:44 Hypertension; Hyperlipidemia; tw2 - PSHx: 12:44 adrenalectomy; right ankle; left wrist; right rotator cuff; Fundoplication for my GERD; tw2 Cholecystectomy; - Immunization history:: Adult Immunizations. - Social history:: Smoking status: . - Ebola Screening: : Patient denies travel to an Ebola-affected area in the 21 days before illness onset. Screenin:30 Abuse screen: Denies threats or abuse. Denies injuries from another. Nutritional bp screening: No deficits noted. Tuberculosis screening: No symptoms or risk factors identified. Fall Risk None identified. Assessment: 13:00 General: Appears in no apparent distress. comfortable, Behavior is calm, cooperative, bp appropriate for age. 13:00 Pain: Complains of pain in right flank. bp 13:00 Neuro: Level of Consciousness is awake, alert, obeys commands, Oriented to person, bp place, time, situation, Appropriate for age. Cardiovascular: No deficits noted. Respiratory: Airway is patent Respiratory effort is even, unlabored, Respiratory pattern is regular, symmetrical. GI: No signs and/or symptoms were reported involving the gastrointestinal system. : Reports pain in right flank(s). EENT: No deficits noted. Derm: No signs and/or symptoms reported regarding the dermatologic system. Musculoskeletal: Circulation, motion, and sensation intact. Range of motion: intact in all extremities. 15:54 Reassessment: CT PENDING. ALL OTHER STUDIES COMPLETED. bp 16:59 Reassessment: PT RETURNED FROM CT. bp 18:15 Reassessment: PT D/C HOME AMBULATORY WITH FAMILY, DX WITH UNSPECIFIED ABDOMINAL PAIN. bp Vital Signs: 12:39 BP 153 / 88; Pulse 109; Resp 18; Temp 97.6(TE); Pulse Ox 95% on R/A; Weight 131.54 kg tw2 (R); Height 6 ft. 1 in. (185.42 cm); Pain 8/10; 15:51 BP 133 / 87; Pulse 94; Resp 16; Pulse Ox 97% ; bp 17:49 BP 130 / 82; Pulse 92; Resp 14; Pulse Ox 96% ; bp 12:39 Body Mass Index 38.26 (131.54 kg, 185.42 cm) tw2 12:39 it does go up to a 10 tw2 ED Course: 12:24 Patient arrived in ED. rg4 12:25 Tanvir Ortez DO is Private Physician. rg4 12:39 Triage completed. tw2 12:39 Arm band placed on. tw2 14:51 Diogenes Cordero, RN is Primary Nurse. bp 15:00 Chuck Neumann PA is PHCP. [facility] 15:00 Steve Pineda MD is Attending Physician. [facility] 15:30 Patient has correct armband on for positive identification. Bed in low position. Call bp light in reach. Side rails up X2. 15:30 Inserted saline lock: 20 gauge in right antecubital area, using aseptic technique. bp Blood collected. 15:33 Urine collected: clean catch specimen, clear, enrique colored. jb1 16:37 CT completed. Patient tolerated procedure well. Patient moved to CT. Patient moved back oh from CT. 16:38 CT Abd/Pelvis - W/Contrast In Process Unspecified. EDMS 18:03 Anders Murphy MD is Referral Physician. [facility] 18:15 No provider procedures requiring assistance completed. IV discontinued, intact, bp bleeding controlled, No redness/swelling at site. Pressure dressing applied. Administered Medications: 15:30 Drug: morphine 2 mg Route: IVP; Site: right antecubital; bp 17:50 Follow up: Response: Pain is decreased bp 15:30 Drug: Zofran 4 mg Route: IVP; Site: right antecubital; bp 17:51 Follow up: Response: No adverse reaction bp 17:30 Drug: morphine 4 mg Route: IVP; Site: right antecubital; bp 17:51 Follow up: Response: Pain is decreased bp Outcome: 18:02 Discharge ordered by MD. m 18:15 Discharged to home ambulatory, with family. bp 18:15 Condition: stable 18:15 Discharge instructions given to patient, Instructed on discharge instructions, follow up and referral plans. medication usage, Demonstrated understanding of instructions, follow-up care, medications, Prescriptions given X 1. 18:16 Patient left the ED. bp Signatures: Dispatcher [employer] EDMS Ryan Geller jb1 Chuck Neumann PA PA jmm Wise, Tara, CHASE RN tw2 Yoly Ochoa [facility] Keyur Pratt Brian, RN RN bp Corrections: (The following items were deleted from the chart) 16:59 13:00 Pain: bp bp
[2019-01-11 18:54] VITALS: TEMP 97.6
[2019-01-11 18:57] VITALS: BP 130/82; O2SAT 96
== END 2019-01-11 18:16 | disposition home or self-care (01) ==
LOC: ER 12:23
DX: R10.9 Unspecified abdominal pain (principal); I10 Essential (primary) hypertension; E78.5 Hyperlipidemia, unspecified
CPT/HCPCS: 36415; 74177; 80048; 80076; 81003; 83690; 85025; 96374; 96375; 99284; J2270; J2405; J7030; Q9967

== ENCOUNTER 2021-07-14 08:53 | Day surgery (SDC) | payer BC ==
[2021-07-13 16:02] LABS: Potassium 4.8 mmol/L (3.5-5.1)
[2021-07-13 16:30] LABS: Basophils % 0.4 % (0-1.3); Hematocrit 40.6 % (39.6-49.0); Lymphocytes % 12.1 % (15.3-44.8); MPV 6.4 fL (7.6-11.3); RBC Red Blood Cell Count 4.46 M/uL (4.33-5.43)
[2021-07-14] MEDS ORDERED: CEFAZOLIN/NS 1gm 1 GM/50 ML BAG ONE (09:17)
[2021-07-14] MEDS ORDERED: Ringers Lactate 1,000 ML IV ONE (09:17)
[2021-07-14] MEDS ORDERED: BUPIVACAINE 0.5% PF 10 ML VIAL ONE (09:34)
[2021-07-14] MEDS ORDERED: MIDAZOLAM HCL 2 MG/2 ML INJ ONE (09:41)
[2021-07-14] MEDS ORDERED: FENTANYL CITR 100 MCG/2 ML ONE (09:53)
[2021-07-14] MEDS ORDERED: LIDOCAINE 1% MPF 5 ML VIAL ONE (09:53)
[2021-07-14] MEDS ORDERED: propofoL 200 MG/20 ML VIAL IV ONE (09:53)
[2021-07-14] MEDS ORDERED: EPHEDRINE SULF 50 MG/ML VIAL ONE (10:09)
[2021-07-14] MEDS ORDERED: NS 0.9% VIAL 10 ML ONE (10:09)
--- NOTE | 2021-07-14 10:25 | P.BOP ---
Preoperative diagnosis: back subQ tender infected mass with abscess 5x5cm Postoperative diagnosis: same Primary procedure: Excisional biopsy back subQ tender infected mass with abscess drainage 5x5c Estimated blood loss: < 10cc Specimen: mass, culture Findings: mass and abscess Anesthesia: General Complications: None Drain(s): Other (wet to dry NS) Transferred to: Recovery Room Condition: Good
--- NOTE | 2021-07-14 10:49 | DS ---
Diagnosis: covering machine tender infected subcutaneous mass. Procedure: Excisional biopsy of tender back infected subcutaneous mass with abscess and drainage. Disposition: Home. Wet-to-dry dressing and normal saline every day. Medications: Include Tylenol No.3 q.4 hours p.r.n. pain, normal saline. He is already taking his an tibiotics. Wet-to-dry dressing and normal saline daily and follow up at the office in a week from kenneth w. USMAN/ARRON Voice ID: [id number] Report ID: [id number]
[2021-07-14] MEDS ORDERED: CODEINE 30MG/APAP 300MG TAB ONE (11:29)
--- NOTE | 2021-07-14 11:43 | OP ---
Date of Procedure: 07/14/2021 Surgeon: Andrés Lopez MD Preoperative Diagnosis: Tender back subcutaneous mass with infection and abscess 5 x 5 cm. Postoperative Diagnosis: Tender back subcutaneous mass with infection and abscess 5 x 5 cm. Procedure: Excisional biopsy of back subcutaneous tender infected mass with abscess and drainage abo ut 5 x 5 cm. Estimated Blood Loss: Less than 10 cc. Specimen: Mass and culture. Findings: Mass with abscess. Anesthesia: General plus local. Packing: Wet-to-dry. Indication: This is the case of a 61-year-old patient, who comes to us with infected mass draining p us in the last few hours. He was seen and scheduled for excisional biopsy of large infected mass wit h abscess and drainage with benefits, alternatives, and risks including, but not limited to infection , bleeding, damage to adjacent structures, anesthesia complication, recurrence, MT, and even . He also understands this may not relieve any symptoms. He might need more than one surgical interven tion. We explained about how to do dressing changes and he felt comfortable with it. The patient un derstands the importance of diabetic. Procedure In Detail: The patient was brought to the operating room, placed in supine position. Anes thesia was done without complication. The patient was placed in lateral decubitus position with prop er protection. The area of concern was previously marked by me and the patient in the holding room. So, we used that as a guidance and proceeded to delineate the area of the infected mass. Pus was co kathy out, so we cultured that area. Then, after that, we proceeded to make a wedge incision on the s kin all the way down to subcutaneous tissue where we were able to visualize the mass and also abscess deep to it with multiple loculations that were explored with the help of a hemostat. The entire are a was about 5 x 5 cm. Pus was removed. Cyst was removed. The area was irrigated. Hemostasis was o btained and the area was packed with wet-to-dry dressing. The patient tolerated the procedure well. The patient on his way to recovery in stable condition. Sponge count and instrument counts correct. HM/MODL Voice ID: [id number] Report ID: [id number]
[2021-07-14 12:03] VITALS: BP 115/70; TEMP 97; O2SAT 96
== END 2021-07-14 11:50 | disposition home or self-care (01) ==
LOC: OR 08:53
PROVIDERS: ATTEND Surgery
PROC: 0JB70ZZ Excision of Back Subcutaneous Tissue and Fascia, Open Approach (ICD-10-PCS; principal; 2021-07-14 10:00)
DX: L72.0 Epidermal cyst (principal); L02.212 Cutaneous abscess of back [any part, except buttock and flank]; Z20.822 Contact with and (suspected) exposure to COVID-19
CPT/HCPCS: 87070; 85025; 80048; 36415; 87205; 88304; 87075; 11406; U0003; J2704; J2250; J3010; J0690; J7120; 88305

== ENCOUNTER 2023-03-06 17:31 | Emergency (ER) | payer BC ==
--- OUTSIDE RECORDS SUMMARY | 2023-03-06 17:38 | XMS REPORT | Continuity of Care Document ---
:1960 Author Organization [facility] t Address [address] [place] [id number] Care Team Providers Name Role Phone Tanvir Ortez DO Primary Care Physician [phone] Tanvir Ortez Attending Clinician Unavailable MAYURI ALONZO Attending Clinician Unavailable YENNI LEE Attending Clinician Unavailable YENNI LEE Admitting Clinician Unavailable Payers Payer Name Policy Type Policy Number Effective Date Expiration Date Alisha meléndez [employer] 6 [id number] 2021 Common Spiri t Blue Shield of 00:00:00 - [facility] BCBS PPO POS [id number] 2016 EPO CHOICE 00:00:00 Problems Condition Condition Condition Status Onset Resolution Last Treating Co mments Source Name Details Category Date Date Treatment Clinician Date Liver cyst Liver cyst Disease Active Last [facility] 00:00: t & Plan: Medical 00 [facility] g of this note might be different from the original. Liver cysts were reported on CT and MRI in 2019. They appear benign by the reports. We have his images and will review in Radiology Conferenc e. Abnormal Abnormal Disease Active Last [facility] t liver liver 5-15 [facility] enzymes enzymes 00:00: t & Plan: Medic al 00 [facility] g of this note might be different from the original. Liver tests in 2020 are worse than in 2019, and may indicate progressi ve liver disease. In particula r, increasin g AST is concernin g as a marker of either alcohol-r elated liver disease or progressi ve fibrosis caused by NAFLD. I advised him to stop all alcohol and to begin a carbohydr ate-restr icted diet (see patient instructi ons). I ordered testing for viral, metabolic , and autoimmun e diseases. Metabolic Metabolic Disease Active Last [facility] syndrome syndrome 15 Ass[facility]men Mary es 00:00: t & Plan: Medical [address] [place] [address] g of this note is different from the original. He meets all criteria for metabolic syndrome. I explained that this increases his risk of progressi ve liver injury and cardiovas cular disease - see dietary advice above. Alcohol Alcohol Disease Active Last [facility] use use 01-03 [facility] 00:00: t & Plan: Medical [address] [place] [address] g of this note might be different from the original. He drinks about 4 oz of alcohol daily. This slightly above the recommend ed volume of 3 oz daily, but is concernin g in the context of progressi ve liver injury caused by NAFLD. I advised him to stop all alcohol in the short term, and will advise him on resuming moderate alcohol based on future testing. Smoking Smoking Disease Active Last [facility] 15 [facility] 00:00: t & Plan: Medical [address] [place] [address] g of this note might be different from the original. He quit with varenicli ne prescribe d by Dr. Ortez. I advised him to continue follow up. Immunity Immunity Disease Active Last [facility] t status status 01-03 [facility]men [facility] testing testing 00:00: t & Plan: Medic al [address] [place] [address] g of this note might be different from the original. CDC recommend s that all patients with chronic liver disease, regardles s of etiology, should be immunized to prevent hepatitis A and hepatitis B if they are not already immune. This should be done in addition to other age-appro priate vaccines. We will test for immunity to both viruses - vaccine recommend ations will follow. Hypertrigl Hypertrigl Disease Active Last C [facility] yceridemia yceridemia 15 [facility] 00:00: t & Plan: Medical [address] [place] [address] g of this note might be different from the original. Hypertrig lyceridem ia is a component of metabolic syndrome and a risk factor for fatty liver disease. His most recent level >1000 is a risk factor for pancreati tis. I advised him to take medicatio ns prescribe d by Dr. Ortez and to immediate ly reduce dietary carbohydr ates. I explained that pancreati tis could be a crippling disease. 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 We will defer to his gastroent erologist . Right Right Disease Recurre [facility] adrenal adrenal nce 5- Assessmen kes mass mass 00:00: t & Plan: Medical 00 [facility] g of this note is different from the original. Right adrenal mass was an incidenta l finding on chest CT - resected in 2018. We will defer to his surgeon and Dr. Ortez. [id number] Body mass Problem Com mon index Spirit [BMI] - [facility] 40.0-44.9, [facility] [id number] Morbid Problem Commo n 9104 (severe) Spirit obesity - [facility] due to [facility] Chronic Chronic Problem Common kidney kidney Spirit disease disease, - [facility] stage [address] (disorder) unspecifie [facility] Hyperlipid Hyperlipid Problem C ommon emia emia [facility] Allergic Allergic Problem Commo n rhinitis rhinitis [facility] Gastro-eso Gastro-eso Problem C ommon phageal phageal Spirit reflux reflux - CHI disease disease St without without [facility] esophagiti esophagiti Me dical s s Center Obstructiv Obstructiv Problem C ommon e sleep e sleep Spirit apnea apnea - [facility] [id number] Alcohol Problem Common abuse Spirit [facility] Adrenal Adrenal Problem Common mass mass Spirit - [facility] Tobacco Tobacco Problem Common use use Spirit disorder - [facility] Obesity Obesity Problem Common (BMI Spirit 30-39.9) - [facility] [id number] H/O total Problem Com mon adrenalect Spirit danny - [facility] [id number] Dependence Problem Co mmon on CPAP Spirit ventilatio - [facility] n [facility] [id number] Hypocalcem Problem Comm on ia Spirit [facility] [id number] Noncomplia Problem Co mmon nce with Spirit dietary [facility] restrictio [facility] [id number] Adult BMI Problem Com mon 38.0-38.9 Spirit kg/sq m [facility] Gastritis Gastritis Problem Com mon [facility] [id number] Adrenal Problem Comm on 9104 incidental Spirit nain [facility] Tubular Tubular Problem Common adenoma adenoma [facility] Essential Benign Problem Common hypertensi essential Spi rit on HTN [facility] [id number] Liver Problem Common lesion [facility] [id number] Type 2 Problem Common diabetes [facility] mellitus [facility] with [facility], Medical without Center long-term current use of insulin [id number] Type 2 Problem Commo n 05 diabetes [facility] mellitus [facility] with [facility] chronic Medical kidney Center disease Allergies, Adverse Reactions, Alerts Allergy Allergy Status Severity Reaction(s) Onset Inactive Treating Comm ents Source Name Type Date Date Clinician NO KNOWN Allergy Active [facility] Family History Family Member Diagnosis Comments Start Date Stop Date Source Natural father Cancer [facility] Natural mother Heart disease [facility] Other Unremarkable [facility] Social History Social Habit Start Date Stop Date Quantity Comments Source History of Common Spirit - Tobacco Use [facility] Alcohol intake 2020-01-04 2020-01-04 Current drinker [facility] 00:00:00 00:00:00 of [facility] (finding) Alcohol Comment 2020-01-04 2020-01-[address] [facility] 00:00:00 00:00:00 Medical Center Tobacco use and 2018-12-13 2018-12-13 [address] [facility] exposure 00:00:00 00:00:00 non-user Medical Center Tobacco Comment 2018-12-13 2018-12-13 quit 07/[address] [facility] 00:00:00 00:00:00 [facility] Sex Assigned At [address] [facility] 00:00:00 00:00:00 Medical Center Smoking Status Start Date Stop Date Source Former Smoker 2022-09-18 00:00:00 2022-09-18 00:00:00 Common S pirit - CHI [facility] Medications Ordered Filled Start Stop Current Ordering Indication Dosage Frequency Signature Comments Components Source Medication Medication Date Date Medication? Clinician (SIG) Name Name Brisa Ledezma 2021-08 No 40mg Common (Triamcinol (Triamcinol 0-27 S pirit one) one) 00:00: - CHI 00 [facility] Brisa Ledezma 2021-08 No 40mg Common (Triamcinol (Triamcinol 0-27 S pirit one) one) 00:00: - CHI 00 [facility] Brisa Ledezma 2021-08 No 40mg Common (Triamcinol (Triamcinol 0-27 S pirit one) one) 00:00: - CHI 00 [facility] Brisa Ledezma 2021-08 No 40mg Common (Triamcinol (Triamcinol 0-27 S pirit one) one) 00:00: - CHI 00 [facility] Carvedilol Carvedilol No 1{table BID Carvedilol 12.5 MG 12.5 MG 7-27 t_with_ 12.5 MG 00:00: food} 00 Carvedilol Carvedilol 2021-0 No 1{table BID Carvedilol 12.5 MG 12.5 MG 7-27 t_with_ 12.5 MG 00:00: food} 00 Carvedilol Carvedilol 2021-0 No 1{table BID Carvedilol 12.5 MG 12.5 MG 7-27 t_with_ 12.5 MG 00:00: food} 00 Carvedilol Carvedilol 2021-0 No 1{table BID Carvedilol 12.5 MG 12.5 MG 7-27 t_with_ 12.5 MG 00:00: food} 00 Carvedilol Carvedilol 2021-0 No 1{table BID Carvedilol 12.5 MG 12.5 MG 7-27 t_with_ 12.5 MG 00:00: food} 00 hydrALAZINE hydrALAZINE 2021-0 No 1{table BID hydrALAZIN HCl 25 MG HCl 25 MG 3-21 t_with_ E HCl 25 00:00: food} MG 00 hydrALAZINE hydrALAZINE No 1{table BID hydrALAZIN HCl 25 MG HCl 25 MG 3-21 t_with_ E HCl 25 00:00: food} MG 00 hydrALAZINE hydrALAZINE No 1{table BID hydrALAZIN HCl 25 MG HCl 25 MG 3-21 t_with_ E HCl 25 00:00: food} MG 00 Sulfamethox Sulfamethox 2020-08- No 1{table BID Sulfametho azole-Trime azole-Trime 09-06 t} xazole-Tri thoprim thoprim 00:00: 00:00 methoprim 800-160 MG 800-160 MG 00 :00 800-160 MG Sulfamethox Sulfamethox 2020-08- No 1{table BID Sulfametho azole-Trime azole-Trime 09-06 t} xazole-Tri thoprim thoprim 00:00: 00:00 methoprim 800-160 MG 800-160 MG 00 :00 800-160 MG Cephalexin Cephalexin 2020-08- No 1{capsu QID Cephalexin 500 MG 500 MG 09-06 le} 500 MG 00:00: 00:00 00 :00 Cephalexin Cephalexin 2020-08- No 1{capsu QID Cephalexin 500 MG 500 MG 09-06 le} 500 MG 00:00: 00:00 00 :00 varenicline 2020-0 Yes [address] (CHANTIX 5-15 [facility] CONTINUING 08:50: Medical MONTH BOX) 21 Center 1 mg tablet fluticasone 2020-0 Yes [address] propionate 5-15 each [facility]ukes (FLONASE 08:50: nostril Medica l ALLERGY 20 Center RELIEF) 50 mcg/actuati on nasal spray potassium-c 2019-0 Yes [address] alcium-magn 5-15 [facility]ukes es-manga 08:50: Medical [id number] 20 Center -2 mg PwPk albuterol 2020-0 Yes [address] [facility] HFA (PROAIR 5-15 needed [facility] HFA) 90 08:50: Medical mcg/actuati 20 Center on inhaler cetirizine Yes [address] (ZYRTEC) 10 5-15 [facility]ukes MG tablet 08:50: Medical 20 Center folic acid Yes [address] (FOLVITE) 5-15 [facility] 400 MCG 08:50: Medical tablet 20 [place] dexlansopra Yes [address] zole 5-15 [facility]ukes (DEXILANT) 08:50: Medical 30 mg 19 [place] delayed release capsule fenofibrate Yes [facility] (TRICOR) 5-11 [facility] 145 MG 00:00: Medical tablet 00 [place] hydroCHLORO Yes TK [address] thiazide 5-06 QD IN THE [facility]ukes (HYDRODIURI 00:00: MORNING Med ical L) 12.5 MG 00 Center tablet amLODIPine Yes 5mg QD Take [address] (NORVASC) 5 5-03 by mouth Luke s MG tablet 11:56: daily. Medica l 17 [place] dexlansopra Yes 60mg QD Take [address] zole 60 mg 5-03 by mouth [facility]ukes capsule 11:56: daily. Medical [address] [place] [address] gemfibrozil Yes 600mg Take [address] (LOPID) 600 5-03 mg by Lukes MG tablet 11:56: mouth 2 Medic al 17 (two) Center times daily before meals. lisinopril Yes 40mg QD Take [address] (PRINIVIL,Z 5-03 by mouth Luke s ESTRIL) 40 11:56: daily. Medic al MG tablet 17 [place] montelukast Yes 10mg QD Take [address] (SINGULAIR) 5-03 by mouth Luke s 10 mg 11:56: nightly. Medical tablet 17 [place] rosuvastati Yes 10mg QD Take [address] n (CRESTOR) 5-03 by mouth Luke s 10 MG 11:56: daily. Medical tablet 17 [place] varenicline Yes 1mg QD Take [address] (CHANTIX) 1 5-03 by mouth Luke s mg tablet 11:56: daily Give Me dical 17 with meals Center and with a full glass of water. . traMADol 0 Yes 100mg Take [address] (ULTRAM) 50 5-03 tablets [facility]ukes mg tablet 00:00: (100 mg Medic al 00 total) by Center mouth every 6 (six) hours as needed for up to 30 doses. Max Daily Amount: 400 mg rosuvastati 2019-0 Yes TAKE [address] n (CRESTOR) 3-11 TABLET BY Mary es 10 MG 00:00: MOUTH Medical tablet 00 EVERY DAY [facility] 2019-0 No 40mg Common (Triamcinol (Triamcinol 2-13 S pirit one) one) 00:00: - CHI 00 [facility] 2018-0 No 40mg Common (Triamcinol (Triamcinol 2-13 S pirit one) one) 00:00: - CHI [facility] 2018-0 No 40mg Common (Triamcinol (Triamcinol 2-13 S pirit one) one) 00:00: - CHI [facility] 2019-0 No 40mg Common (Triamcinol (Triamcinol 2-13 S pirit one) one) 00:00: - CHI 00 [facility] 2019-0 No 40mg Common (Triamcinol (Triamcinol 2-13 S pirit one) one) 00:00: - CHI 00 [facility] 2019-0 No 40mg Common (Triamcinol (Triamcinol 2-13 S pirit one) one) 00:00: - CHI 00 [facility] 2019-0 No 40mg Common (Triamcinol (Triamcinol 2-13 S pirit one) one) 00:00: - CHI 00 [facility] 2019-0 No 40mg Common (Triamcinol (Triamcinol 2-13 S pirit one) one) 00:00: - CHI 00 [facility] 2019-0 No 40mg Common (Triamcinol (Triamcinol 2-13 S pirit one) one) 00:00: - CHI [facility] 2018-0 No 40mg Common (Triamcinol (Triamcinol 2-25 S pirit one) one) 00:00: - CHI 00 [facility] Brisa Ledezma 2018-0 No 40mg Common (Triamcinol (Triamcinol 2-25 S pirit one) one) 00:00: - CHI 00 [facility] Brisa 2018-0 No 40mg Common (Triamcinol (Triamcinol 2-25 S pirit one) one) 00:00: - CHI 00 [facility] Brisa 2017-0 No 40mg Common (Triamcinol (Triamcinol 2-25 S pirit one) one) 00:00: - CHI 00 [facility] Brisa Ledezma 2017-0 No 40mg Common (Triamcinol (Triamcinol 2-25 S pirit one) one) 00:00: - CHI 00 [facility] Brisa 2017-0 No 40mg Common (Triamcinol (Triamcinol 2-25 S pirit one) one) 00:00: - CHI 00 [facility] Brisa 2017-0 No 40mg Common (Triamcinol (Triamcinol 2-25 S pirit one) one) 00:00: - CHI 00 [facility] Brisa Ledezma 2017-0 No 40mg Common (Triamcinol (Triamcinol 2-25 S pirit one) one) 00:00: - CHI 00 [facility] Brisa Ledezma 2018-0 No 40mg Common (Triamcinol (Triamcinol 2-25 S pirit one) one) 00:00: - CHI 00 [facility] Dexilant Dexilant Yes Tanvir 1 capsule Common Ortez [facility] Lisinopril Lisinopril Yes Tanvir TAKE 1 Common Ortez TABLET BY Spirit MOUTH - CHI EVERY DAY [facility] Montelukast Montelukast Yes Tanvir 1 tablet Common Sodium Sodium Ortez [facility] Folic Acid Folic Acid Yes Tanvir 1 tablet Common Ortez [facility] Etodolac Etodolac Yes Tanvir 1 tablet C ommon Ortez with food [facility] ProAir HFA ProAir HFA Yes Tanvir 2 puffs as Common Ortez needed [facility] Vascepa Vascepa Yes Tanvir TAKE 2 Commo n Ortez CAPSULES Spirit BY MOUTH - CHI TWICE St DAILY WITH [facility] Zyrtec Zyrtec Yes Tanvir 1 tablet Commo n Allergy Allergy Ortez [facility] Potassium Potassium Yes Tanvir 1 tablet Common Ortez [facility] Flonase Flonase Yes Tanvir 1 spray in C ommon Ortez each Spirit nostril - CHI [facility] Chantix Chantix Yes Tanvir 1 tablet Com mon Continuing Continuing Ortez Sp arianna Month Antwon Month Antwon - CHI [facility] Rosuvastati Rosuvastati Yes Tanvir TAKE 1 Common n Calcium n Calcium Ortez TABLET BY Spirit MOUTH - CHI EVERY DAY [facility] Crestor Crestor Yes Tanvir 1 tablet Com mon Ortez [facility] Hydrochloro Hydrochloro Yes Tanvir TAKE 1 Common thiazide thiazide Ortez TABLET BY S pirit MOUTH - CHI EVERY DAY St IN [facility] Montelukast Montelukast Yes Tanvir TAKE 1 Common Sodium Sodium Ortez TABLET BY Spiri t MOUTH - CHI EVERY DAY [facility] Fenofibrate Fenofibrate Yes Tanvir TAKE 1 Common Ortez TABLET BY Spirit MOUTH - CHI EVERY DAY St WITH FOOD [facility] Rosuvastati Rosuvastati Yes Tanvir TAKE 1 Common n Calcium n Calcium Ortez TABLET BY Spirit MOUTH - CHI EVERY DAY [facility] Breo Breo No 1{puff} QD Breo Ellipta Ellipta Ellipta 200-25 200-25 200-25 MCG/INH MCG/INH MCG/INH hydroCHLORO hydroCHLORO No 1{table QD hydroCHLOR thiazide thiazide t_in_th Othiazide 12.5 MG 12.5 MG e_morni 12.5 MG ng} Potassium Potassium No 1{table QD Potassium 99 MG 99 MG t} 99 MG hydroCHLORO hydroCHLORO No hydroCHLOR thiazide thiazide Othiazide 12.5 MG 12.5 MG 12.5 MG Flonase 50 Flonase 50 No 1{spray QD Flonase 50 MCG/ACT MCG/ACT _in_eac MCG/ACT h_nostr il} Crestor 20 Crestor 20 No 1{table QD Crestor 20 MG MG t} MG Montelukast Montelukast No 1{table QD Montelukas Sodium 10 Sodium 10 t} t Sodium 10 Vascepa 1 Vascepa 1 No Vascepa 1 GM GM GM Lisinopril Lisinopril No 1{table QD Lisinopril 40 MG 40 MG t} 40 MG ZyrTEC ZyrTEC No 1{table QD ZyrTEC Allergy 10 Allergy 10 t} Allergy 10 MG MG MG Montelukast Montelukast No Montelukas Sodium 10 Sodium 10 t Sodium MG MG 10 MG Lisinopril Lisinopril No Lisinopril 40 MG 40 MG 40 MG Chantix Chantix No 1{table BID Chantix Continuing Continuing t} Continuing Month Antwon 1 Month Antwon 1 Month Antwon MG MG 1 MG Fenofibrate Fenofibrate No 1{table QD Fenofibrat 145 MG 145 MG t_with_ e 145 MG food} Rosuvastati Rosuvastati No Rosuvastat n Calcium n Calcium in Calcium 20 MG 20 MG 20 MG Fenofibrate Fenofibrate No Fenofibrat 145 MG 145 MG e 145 MG Etodolac Etodolac No 1{table BID Etodolac 500 MG 500 MG t_with_ 500 MG food} Folic Acid Folic Acid No 1{table QD Folic Acid 400 MCG 400 MCG t} 400 MCG ProAir HFA ProAir HFA No 2{puffs QID ProAir HFA 108 (90 108 (90 _as_nee 108 (90 Base) Base) ded} Base) MCG/ACT MCG/ACT MCG/ACT Rosuvastati Rosuvastati No Rosuvastat n Calcium n Calcium in Calcium 10 MG 10 MG 10 MG Dexilant 60 Dexilant 60 No 1{capsu QD Dexilant MG MG le} 60 MG Breo Breo No 1{puff} QD Breo Ellipta Ellipta Ellipta 200-25 200-25 200-25 MCG/INH MCG/INH MCG/INH hydroCHLORO hydroCHLORO No 1{table QD hydroCHLOR thiazide thiazide t_in_th Othiazide 12.5 MG 12.5 MG e_morni 12.5 MG ng} Potassium Potassium No 1{table QD Potassium 99 MG 99 MG t} 99 MG hydroCHLORO hydroCHLORO No hydroCHLOR thiazide thiazide Othiazide 12.5 MG 12.5 MG 12.5 MG Flonase 50 Flonase 50 No 1{spray QD Flonase 50 MCG/ACT MCG/ACT _in_eac MCG/ACT h_nostr il} Crestor 20 Crestor 20 No 1{table QD Crestor 20 MG MG t} MG Montelukast Montelukast No 1{table QD Montelukas Sodium 10 Sodium 10 t} t Sodium 10 Vascepa 1 Vascepa 1 No Vascepa 1 GM GM GM Lisinopril Lisinopril No 1{table QD Lisinopril 40 MG 40 MG t} 40 MG ZyrTEC ZyrTEC No 1{table QD ZyrTEC Allergy 10 Allergy 10 t} Allergy 10 MG MG MG Montelukast Montelukast No Montelukas Sodium 10 Sodium 10 t Sodium MG MG 10 MG Lisinopril Lisinopril No Lisinopril 40 MG 40 MG 40 MG Chantix Chantix No 1{table BID Chantix Continuing Continuing t} Continuing Month Antwon 1 Month Antwon 1 Month Antwon MG MG 1 MG Fenofibrate Fenofibrate No 1{table QD Fenofibrat 145 MG 145 MG t_with_ e 145 MG food} Rosuvastati Rosuvastati No Rosuvastat n Calcium n Calcium in Calcium 20 MG 20 MG 20 MG Fenofibrate Fenofibrate No Fenofibrat 145 MG 145 MG e 145 MG Etodolac Etodolac No 1{table BID Etodolac 500 MG 500 MG t_with_ 500 MG food} hydroCHLORO hydroCHLORO No 1{table QD hydroCHLOR thiazide thiazide t_in_th Othiazide 12.5 MG 12.5 MG e_morni 12.5 MG ng} Fenofibrate Fenofibrate No Fenofibrat 145 MG 145 MG e 145 MG Crestor 20 Crestor 20 No 1{table QD Crestor 20 MG MG t} MG hydroCHLORO hydroCHLORO No hydroCHLOR thiazide thiazide Othiazide 12.5 MG 12.5 MG 12.5 MG ProAir HFA ProAir HFA No 2{puffs QID ProAir HFA 108 (90 108 (90 _as_nee 108 (90 Base) Base) ded} Base) MCG/ACT MCG/ACT MCG/ACT Rosuvastati Rosuvastati No Rosuvastat n Calcium n Calcium in Calcium 10 MG 10 MG 10 MG Folic Acid Folic Acid No 1{table QD Folic Acid 400 MCG 400 MCG t} 400 MCG ZyrTEC ZyrTEC No 1{table QD ZyrTEC Allergy 10 Allergy 10 t} Allergy 10 MG MG MG Potassium Potassium No 1{table QD Potassium 99 MG 99 MG t} 99 MG Etodolac Etodolac No 1{table BID Etodolac 500 MG 500 MG t_with_ 500 MG food} Lisinopril Lisinopril No Lisinopril 40 MG 40 MG 40 MG Dexilant 60 Dexilant 60 No 1{capsu QD Dexilant MG MG le} 60 MG Rosuvastati Rosuvastati No Rosuvastat n Calcium n Calcium in Calcium 20 MG 20 MG 20 MG Vascepa 1 Vascepa 1 No Vascepa 1 GM GM GM Montelukast Montelukast No 1{table QD Montelukas Sodium 10 Sodium 10 t} t Sodium 10 Flonase 50 Flonase 50 No 1{spray QD Flonase 50 MCG/ACT MCG/ACT _in_eac MCG/ACT h_nostr il} Chantix Chantix No 1{table BID Chantix Continuing Continuing t} Continuing Month Antwon 1 Month Antwon 1 Month Antwon MG MG 1 MG Fenofibrate Fenofibrate No 1{table QD Fenofibrat 145 MG 145 MG t_with_ e 145 MG food} Breo Breo No 1{puff} QD Breo Ellipta Ellipta Ellipta 200-25 200-25 200-25 MCG/INH MCG/INH MCG/INH Montelukast Montelukast No Montelukas Sodium 10 Sodium 10 t Sodium MG MG 10 MG Lisinopril Lisinopril No 1{table QD Lisinopril 40 MG 40 MG t} 40 MG Lisinopril Lisinopril No 1{table QD Lisinopril 40 MG 40 MG t} 40 MG hydroCHLORO hydroCHLORO No 1{table QD hydroCHLOR thiazide thiazide t_in_th Othiazide 12.5 MG 12.5 MG e_morni 12.5 MG ng} Dexilant 60 Dexilant 60 No 1{capsu QD Dexilant MG MG le} 60 MG Montelukast Montelukast No 1{table QD Montelukas Sodium 10 Sodium 10 t} t Sodium 10 Rosuvastati Rosuvastati No Rosuvastat n Calcium n Calcium in Calcium 20 MG 20 MG 20 MG Etodolac Etodolac No 1{table BID Etodolac 500 MG 500 MG t_with_ 500 MG food} ProAir HFA ProAir HFA No 2{puffs QID ProAir HFA 108 (90 108 (90 _as_nee 108 (90 Base) Base) ded} Base) MCG/ACT MCG/ACT MCG/ACT Breo Breo No 1{puff} QD Breo Ellipta Ellipta Ellipta 200-25 200-25 200-25 MCG/INH MCG/INH MCG/INH Vascepa 1 Vascepa 1 No Vascepa 1 GM GM GM Montelukast Montelukast No Montelukas Sodium 10 Sodium 10 t Sodium MG MG 10 MG hydroCHLORO hydroCHLORO No hydroCHLOR thiazide thiazide Othiazide 12.5 MG 12.5 MG 12.5 MG ZyrTEC ZyrTEC No 1{table QD ZyrTEC Allergy 10 Allergy 10 t} Allergy 10 MG MG MG Chantix Chantix No 1{table BID Chantix Continuing Continuing t} Continuing Month Antwon 1 Month Antwon 1 Month Antwon MG MG 1 MG Potassium Potassium No 1{table QD Potassium 99 MG 99 MG t} 99 MG Rosuvastati Rosuvastati No Rosuvastat n Calcium n Calcium in Calcium 10 MG 10 MG 10 MG Crestor 20 Crestor 20 No 1{table QD Crestor 20 MG MG t} MG Lisinopril Lisinopril No Lisinopril 40 MG 40 MG 40 MG Fenofibrate Fenofibrate No Fenofibrat 145 MG 145 MG e 145 MG Flonase 50 Flonase 50 No 1{spray QD Flonase 50 MCG/ACT MCG/ACT _in_eac MCG/ACT h_nostr il} Folic Acid Folic Acid No 1{table QD Folic Acid 400 MCG 400 MCG t} 400 MCG Lisinopril Lisinopril No 1{table QD Lisinopril 40 MG 40 MG t} 40 MG hydroCHLORO hydroCHLORO No 1{table QD hydroCHLOR thiazide thiazide t_in_th Othiazide 12.5 MG 12.5 MG e_morni 12.5 MG ng} Dexilant 60 Dexilant 60 No 1{capsu QD Dexilant MG MG le} 60 MG Montelukast Montelukast No 1{table QD Montelukas Sodium 10 Sodium 10 t} t Sodium 10 Rosuvastati Rosuvastati No Rosuvastat n Calcium n Calcium in Calcium 20 MG 20 MG 20 MG Etodolac Etodolac No 1{table BID Etodolac 500 MG 500 MG t_with_ 500 MG food} ProAir HFA ProAir HFA No 2{puffs QID ProAir HFA 108 (90 108 (90 _as_nee 108 (90 Base) Base) ded} Base) MCG/ACT MCG/ACT MCG/ACT Breo Breo No 1{puff} QD Breo Ellipta Ellipta Ellipta 200-25 200-25 200-25 MCG/INH MCG/INH MCG/INH Vascepa 1 Vascepa 1 No Vascepa 1 GM GM GM Montelukast Montelukast No Montelukas Sodium 10 Sodium 10 t Sodium MG MG 10 MG hydroCHLORO hydroCHLORO No hydroCHLOR thiazide thiazide Othiazide 12.5 MG 12.5 MG 12.5 MG ZyrTEC ZyrTEC No 1{table QD ZyrTEC Allergy 10 Allergy 10 t} Allergy 10 MG MG MG Chantix Chantix No 1{table BID Chantix Continuing Continuing t} Continuing Month Antwon 1 Month Antwon 1 Month Antwon MG MG 1 MG Potassium Potassium No 1{table QD Potassium 99 MG 99 MG t} 99 MG Rosuvastati Rosuvastati No Rosuvastat n Calcium n Calcium in Calcium 10 MG 10 MG 10 MG Crestor 20 Crestor 20 No 1{table QD Crestor 20 MG MG t} MG Lisinopril Lisinopril No Lisinopril 40 MG 40 MG 40 MG Fenofibrate Fenofibrate No Fenofibrat 145 MG 145 MG e 145 MG Flonase 50 Flonase 50 No 1{spray QD Flonase 50 MCG/ACT MCG/ACT _in_eac MCG/ACT h_nostr il} Folic Acid Folic Acid No 1{table QD Folic Acid 400 MCG 400 MCG t} 400 MCG ZyrTEC ZyrTEC No 1{table QD ZyrTEC Allergy 10 Allergy 10 t} Allergy 10 MG MG MG Montelukast Montelukast No 1{table QD Montelukas Sodium 10 Sodium 10 t} t Sodium 10 hydroCHLORO hydroCHLORO No 1{table QD hydroCHLOR thiazide thiazide t_in_th Othiazide 12.5 MG 12.5 MG e_morni 12.5 MG ng} Dexilant 60 Dexilant 60 No 1{capsu QD Dexilant MG MG le} 60 MG Crestor 20 Crestor 20 No 1{table QD Crestor 20 MG MG t} MG Rosuvastati Rosuvastati No Rosuvastat n Calcium n Calcium in Calcium 20 MG 20 MG 20 MG Lisinopril Lisinopril No 1{table QD Lisinopril 40 MG 40 MG t} 40 MG Potassium Potassium No 1{table QD Potassium 99 MG 99 MG t} 99 MG Montelukast Montelukast No Montelukas Sodium 10 Sodium 10 t Sodium MG MG 10 MG Rosuvastati Rosuvastati No Rosuvastat n Calcium n Calcium in Calcium 10 MG 10 MG 10 MG hydroCHLORO hydroCHLORO No hydroCHLOR thiazide thiazide Othiazide 12.5 MG 12.5 MG 12.5 MG Fenofibrate Fenofibrate No Fenofibrat 145 MG 145 MG e 145 MG Lisinopril Lisinopril No Lisinopril 40 MG 40 MG 40 MG ProAir HFA ProAir HFA No 2{puffs QID ProAir HFA 108 (90 108 (90 _as_nee 108 (90 Base) Base) ded} Base) MCG/ACT MCG/ACT MCG/ACT Breo Breo No 1{puff} QD Breo Ellipta Ellipta Ellipta 200-25 200-25 200-25 MCG/INH MCG/INH MCG/INH Crestor 20 Crestor 20 No 1{table QD Crestor 20 MG MG t} MG Vascepa 1 Vascepa 1 No Vascepa 1 GM GM GM Chantix Chantix No 1{table BID Chantix Continuing Continuing t} Continuing Month Antwon 1 Month Antwon 1 Month Antwon MG MG 1 MG Fenofibrate Fenofibrate No 1{table QD Fenofibrat 145 MG 145 MG t_with_ e 145 MG food} Etodolac Etodolac No 1{table BID Etodolac 500 MG 500 MG t_with_ 500 MG food} Flonase 50 Flonase 50 No 1{spray QD Flonase 50 MCG/ACT MCG/ACT _in_eac MCG/ACT h_nostr il} Folic Acid Folic Acid No 1{table QD Folic Acid 400 MCG 400 MCG t} 400 MCG Fenofibrate Fenofibrate No Fenofibrat 145 MG 145 MG e 145 MG Dexilant 60 Dexilant 60 No 1{capsu QD Dexilant MG MG le} 60 MG Folic Acid Folic Acid No 1{table QD Folic Acid 400 MCG 400 MCG t} 400 MCG Lisinopril Lisinopril No 1{table QD Lisinopril 40 MG 40 MG t} 40 MG Crestor 20 Crestor 20 No 1{table QD Crestor 20 MG MG t} MG Chantix Chantix No 1{table BID Chantix Continuing Continuing t} Continuing Month Antwon 1 Month Antwon 1 Month Antwon MG MG 1 MG Breo Breo No 1{puff} QD Breo Ellipta Ellipta Ellipta 200-25 200-25 200-25 MCG/INH MCG/INH MCG/INH hydroCHLORO hydroCHLORO No hydroCHLOR thiazide thiazide Othiazide 12.5 MG 12.5 MG 12.5 MG Lisinopril Lisinopril No Lisinopril 40 MG 40 MG 40 MG Vascepa 1 Vascepa 1 No Vascepa 1 GM GM GM Montelukast Montelukast No Montelukas Sodium 10 Sodium 10 t Sodium MG MG 10 MG ProAir HFA ProAir HFA No 2{puffs QID ProAir HFA 108 (90 108 (90 _as_nee 108 (90 Base) Base) ded} Base) MCG/ACT MCG/ACT MCG/ACT hydroCHLORO hydroCHLORO No 1{table QD hydroCHLOR thiazide thiazide t_in_th Othiazide 12.5 MG 12.5 MG e_morni 12.5 MG ng} ZyrTEC ZyrTEC No 1{table QD ZyrTEC Allergy 10 Allergy 10 t} Allergy 10 MG MG MG Potassium Potassium No 1{table QD Potassium 99 MG 99 MG t} 99 MG Flonase 50 Flonase 50 No 1{spray QD Flonase 50 MCG/ACT MCG/ACT _in_eac MCG/ACT h_nostr il} Montelukast Montelukast No 1{table QD Montelukas Sodium 10 Sodium 10 t} t Sodium 10 Etodolac Etodolac No 1{table BID Etodolac 500 MG 500 MG t_with_ 500 MG food} Rosuvastati Rosuvastati No Rosuvastat n Calcium n Calcium in Calcium 10 MG 10 MG 10 MG Rosuvastati Rosuvastati No Rosuvastat n Calcium n Calcium in Calcium 20 MG 20 MG 20 MG Fenofibrate Fenofibrate No Fenofibrat 145 MG 145 MG e 145 MG Dexilant 60 Dexilant 60 No 1{capsu QD Dexilant MG MG le} 60 MG Folic Acid Folic Acid No 1{table QD Folic Acid 400 MCG 400 MCG t} 400 MCG Lisinopril Lisinopril No 1{table QD Lisinopril 40 MG 40 MG t} 40 MG Crestor 20 Crestor 20 No 1{table QD Crestor 20 MG MG t} MG Chantix Chantix No 1{table BID Chantix Continuing Continuing t} Continuing Month Antwon 1 Month Antwon 1 Month Antwon MG MG 1 MG Breo Breo No 1{puff} QD Breo Ellipta Ellipta Ellipta 200-25 200-25 200-25 MCG/INH MCG/INH MCG/INH hydroCHLORO hydroCHLORO No hydroCHLOR thiazide thiazide Othiazide 12.5 MG 12.5 MG 12.5 MG Lisinopril Lisinopril No Lisinopril 40 MG 40 MG 40 MG Vascepa 1 Vascepa 1 No Vascepa 1 GM GM GM Montelukast Montelukast No Montelukas Sodium 10 Sodium 10 t Sodium MG MG 10 MG ProAir HFA ProAir HFA No 2{puffs QID ProAir HFA 108 (90 108 (90 _as_nee 108 (90 Base) Base) ded} Base) MCG/ACT MCG/ACT MCG/ACT hydroCHLORO hydroCHLORO No 1{table QD hydroCHLOR thiazide thiazide t_in_th Othiazide 12.5 MG 12.5 MG e_morni 12.5 MG ng} ZyrTEC ZyrTEC No 1{table QD ZyrTEC Allergy 10 Allergy 10 t} Allergy 10 MG MG MG Potassium Potassium No 1{table QD Potassium 99 MG 99 MG t} 99 MG Flonase 50 Flonase 50 No 1{spray QD Flonase 50 MCG/ACT MCG/ACT _in_eac MCG/ACT h_nostr il} Montelukast Montelukast No 1{table QD Montelukas Sodium 10 Sodium 10 t} t Sodium 10 Etodolac Etodolac No 1{table BID Etodolac 500 MG 500 MG t_with_ 500 MG food} Rosuvastati Rosuvastati No Rosuvastat n Calcium n Calcium in Calcium 10 MG 10 MG 10 MG Rosuvastati Rosuvastati No Rosuvastat n Calcium n Calcium in Calcium 20 MG 20 MG 20 MG Chantix Chantix No 1{table BID Chantix Continuing Continuing t} Continuing Month Antwon 1 Month Antwon 1 Month Antwon MG MG 1 MG Lisinopril Lisinopril No 1{table QD Lisinopril 40 MG 40 MG t} 40 MG ZyrTEC ZyrTEC No 1{table QD ZyrTEC Allergy 10 Allergy 10 t} Allergy 10 MG MG MG Lisinopril Lisinopril No Lisinopril 40 MG 40 MG 40 MG Dexilant 60 Dexilant 60 No 1{capsu QD Dexilant MG MG le} 60 MG Carvedilol Carvedilol No Carvedilol hydroCHLORO hydroCHLORO No hydroCHLOR thiazide thiazide Othiazide 12.5 MG 12.5 MG 12.5 MG Rosuvastati Rosuvastati No Rosuvastat n Calcium n Calcium in Calcium 20 MG 20 MG 20 MG Rosuvastati Rosuvastati No Rosuvastat n Calcium n Calcium in Calcium 10 MG 10 MG 10 MG Folic Acid Folic Acid No 1{table QD Folic Acid 400 MCG 400 MCG t} 400 MCG Montelukast Montelukast No 1{table QD Montelukas Sodium 10 Sodium 10 t} t Sodium 10 Breo Breo No 1{puff} QD Breo Ellipta Ellipta Ellipta 200-25 200-25 200-25 MCG/INH MCG/INH MCG/INH Flonase 50 Flonase 50 No 1{spray QD Flonase 50 MCG/ACT MCG/ACT _in_eac MCG/ACT h_nostr il} Potassium Potassium No 1{table QD Potassium 99 MG 99 MG t} 99 MG Crestor 20 Crestor 20 No 1{table QD Crestor 20 MG MG t} MG Etodolac Etodolac No 1{table BID Etodolac 500 MG 500 MG t_with_ 500 MG food} Fenofibrate Fenofibrate No 1{table QD Fenofibrat 145 MG 145 MG t_with_ e 145 MG food} Vascepa 1 Vascepa 1 No Vascepa 1 GM GM GM Montelukast Montelukast No Montelukas Sodium 10 Sodium 10 t Sodium MG MG 10 MG ProAir HFA ProAir HFA No 2{puffs QID ProAir HFA 108 (90 108 (90 _as_nee 108 (90 Base) Base) ded} Base) MCG/ACT MCG/ACT MCG/ACT Fenofibrate Fenofibrate No Fenofibrat 145 MG 145 MG e 145 MG hydroCHLORO hydroCHLORO No 1{table QD hydroCHLOR thiazide thiazide t_in_th Othiazide 12.5 MG 12.5 MG e_morni 12.5 MG ng} Lisinopril Lisinopril No 1{table QD Lisinopril 40 MG 40 MG t} 40 MG Dexilant 60 Dexilant 60 No 1{capsu QD Dexilant MG MG le} 60 MG Rosuvastati Rosuvastati No Rosuvastat n Calcium n Calcium in Calcium 10 MG 10 MG 10 MG hydroCHLORO hydroCHLORO No hydroCHLOR thiazide thiazide Othiazide 12.5 MG 12.5 MG 12.5 MG Lisinopril Lisinopril No Lisinopril 40 MG 40 MG 40 MG Breo Breo No 1{puff} QD Breo Ellipta Ellipta Ellipta 200-25 200-25 200-25 MCG/INH MCG/INH MCG/INH Flonase 50 Flonase 50 No 1{spray QD Flonase 50 MCG/ACT MCG/ACT _in_eac MCG/ACT h_nostr il} Fenofibrate Fenofibrate No 1{table QD Fenofibrat 145 MG 145 MG t_with_ e 145 MG food} Chantix Chantix No 1{table BID Chantix Continuing Continuing t} Continuing Month [place] 1 Month Antwon 1 Month Antwon MG MG 1 MG Montelukast Montelukast No Montelukas Sodium 10 Sodium 10 t Sodium MG MG 10 MG Crestor 10 Crestor 10 No 1{table QD Crestor 10 MG MG t} MG ZyrTEC ZyrTEC No 1{table QD ZyrTEC Allergy 10 Allergy 10 t} Allergy 10 MG MG MG Carvedilol Carvedilol No Carvedilol Potassium Potassium No 1{table QD Potassium 99 MG 99 MG t} 99 MG Fenofibrate Fenofibrate No Fenofibrat 145 MG 145 MG e 145 MG hydroCHLORO hydroCHLORO No 1{table QD hydroCHLOR thiazide thiazide t_in_th Othiazide 12.5 MG 12.5 MG e_morni 12.5 MG ng} Lisinopril Lisinopril No 1{table QD Lisinopril 40 MG 40 MG t} 40 MG Dexilant 60 Dexilant 60 No 1{capsu QD Dexilant MG MG le} 60 MG Rosuvastati Rosuvastati No Rosuvastat n Calcium n Calcium in Calcium 10 MG 10 MG 10 MG hydroCHLORO hydroCHLORO No hydroCHLOR thiazide thiazide Othiazide 12.5 MG 12.5 MG 12.5 MG Lisinopril Lisinopril No Lisinopril 40 MG 40 MG 40 MG Breo Breo No 1{puff} QD Breo Ellipta Ellipta Ellipta 200-25 200-25 200-25 MCG/INH MCG/INH MCG/INH Flonase 50 Flonase 50 No 1{spray QD Flonase 50 MCG/ACT MCG/ACT _in_eac MCG/ACT h_nostr il} Fenofibrate Fenofibrate No 1{table QD Fenofibrat 145 MG 145 MG t_with_ e 145 MG food} Chantix Chantix No 1{table BID Chantix Continuing Continuing t} Continuing Month Antwon 1 Month Antwon 1 Month Antwon MG MG 1 MG Montelukast Montelukast No Montelukas Sodium 10 Sodium 10 t Sodium MG MG 10 MG Crestor 10 Crestor 10 No 1{table QD Crestor 10 MG MG t} MG ZyrTEC ZyrTEC No 1{table QD ZyrTEC Allergy 10 Allergy 10 t} Allergy 10 MG MG MG Carvedilol Carvedilol No Carvedilol Potassium Potassium No 1{table QD Potassium 99 MG 99 MG t} 99 MG Fenofibrate Fenofibrate No Fenofibrat 145 MG 145 MG e 145 MG hydroCHLORO hydroCHLORO No 1{table QD hydroCHLOR thiazide thiazide t_in_th Othiazide 12.5 MG 12.5 MG e_morni 12.5 MG ng} Rosuvastati Rosuvastati No Rosuvastat n Calcium n Calcium in Calcium 20 MG 20 MG 20 MG Rosuvastati Rosuvastati No Rosuvastat n Calcium n Calcium in Calcium 10 MG 10 MG 10 MG Fenofibrate Fenofibrate No Fenofibrat 145 MG 145 MG e 145 MG Carvedilol Carvedilol No Carvedilol Potassium Potassium No 1{table QD Potassium 99 MG 99 MG t} 99 MG Lisinopril Lisinopril No 1{table QD Lisinopril 40 MG 40 MG t} 40 MG Montelukast Montelukast No Montelukas Sodium 10 Sodium 10 t Sodium MG MG 10 MG Flonase 50 Flonase 50 No 1{spray QD Flonase 50 MCG/ACT MCG/ACT _in_eac MCG/ACT h_nostr il} Breo Breo No 1{puff} QD Breo Ellipta Ellipta Ellipta 200-25 200-25 200-25 MCG/INH MCG/INH MCG/INH Fenofibrate Fenofibrate No 1{table QD Fenofibrat 145 MG 145 MG t_with_ e 145 MG food} hydroCHLORO hydroCHLORO No hydroCHLOR thiazide thiazide Othiazide 12.5 MG 12.5 MG 12.5 MG Crestor 10 Crestor 10 No 1{table QD Crestor 10 MG MG t} MG Dexilant 60 Dexilant 60 No 1{capsu QD Dexilant MG MG le} 60 MG hydroCHLORO hydroCHLORO No 1{table QD hydroCHLOR thiazide thiazide t_in_th Othiazide 12.5 MG 12.5 MG e_morni 12.5 MG ng} Chantix Chantix No 1{table BID Chantix Continuing Continuing t} Continuing Month Antwon 1 Month Antwon 1 Month Antwon MG MG 1 MG Lisinopril Lisinopril No Lisinopril 40 MG 40 MG 40 MG ZyrTEC ZyrTEC No 1{table QD ZyrTEC Allergy 10 Allergy 10 t} Allergy 10 MG MG MG Rosuvastati Rosuvastati No Rosuvastat n Calcium n Calcium in Calcium 20 MG 20 MG 20 MG Rosuvastati Rosuvastati No Rosuvastat n Calcium n Calcium in Calcium 10 MG 10 MG 10 MG Fenofibrate Fenofibrate No Fenofibrat 145 MG 145 MG e 145 MG Carvedilol Carvedilol No Carvedilol Potassium Potassium No 1{table QD Potassium 99 MG 99 MG t} 99 MG Lisinopril Lisinopril No 1{table QD Lisinopril 40 MG 40 MG t} 40 MG Montelukast Montelukast No Montelukas Sodium 10 Sodium 10 t Sodium MG MG 10 MG Flonase 50 Flonase 50 No 1{spray QD Flonase 50 MCG/ACT MCG/ACT _in_eac MCG/ACT h_nostr il} Breo Breo No 1{puff} QD Breo Ellipta Ellipta Ellipta 200-25 200-25 200-25 MCG/INH MCG/INH MCG/INH Fenofibrate Fenofibrate No 1{table QD Fenofibrat 145 MG 145 MG t_with_ e 145 MG food} hydroCHLORO hydroCHLORO No hydroCHLOR thiazide thiazide Othiazide 12.5 MG 12.5 MG 12.5 MG Crestor 10 Crestor 10 No 1{table QD Crestor 10 MG MG t} MG Dexilant 60 Dexilant 60 No 1{capsu QD Dexilant MG MG le} 60 MG hydroCHLORO hydroCHLORO No 1{table QD hydroCHLOR thiazide thiazide t_in_th Othiazide 12.5 MG 12.5 MG e_morni 12.5 MG ng} Chantix Chantix No 1{table BID Chantix Continuing Continuing t} Continuing Month Antwon 1 Month Antwon 1 Month Antwon MG MG 1 MG Lisinopril Lisinopril No Lisinopril 40 MG 40 MG 40 MG ZyrTEC ZyrTEC No 1{table QD ZyrTEC Allergy 10 Allergy 10 t} Allergy 10 MG MG MG Rosuvastati Rosuvastati No Rosuvastat n Calcium n Calcium in Calcium 20 MG 20 MG 20 MG Rosuvastati Rosuvastati No Rosuvastat n Calcium n Calcium in Calcium 10 MG 10 MG 10 MG Fenofibrate Fenofibrate No Fenofibrat 145 MG 145 MG e 145 MG Carvedilol Carvedilol No Carvedilol Potassium Potassium No 1{table QD Potassium 99 MG 99 MG t} 99 MG Lisinopril Lisinopril No 1{table QD Lisinopril 40 MG 40 MG t} 40 MG Montelukast Montelukast No Montelukas Sodium 10 Sodium 10 t Sodium MG MG 10 MG Flonase 50 Flonase 50 No 1{spray QD Flonase 50 MCG/ACT MCG/ACT _in_eac MCG/ACT h_nostr il} Breo Breo No 1{puff} QD Breo Ellipta Ellipta Ellipta 200-25 200-25 200-25 MCG/INH MCG/INH MCG/INH Fenofibrate Fenofibrate No 1{table QD Fenofibrat 145 MG 145 MG t_with_ e 145 MG food} hydroCHLORO hydroCHLORO No hydroCHLOR thiazide thiazide Othiazide 12.5 MG 12.5 MG 12.5 MG Crestor 10 Crestor 10 No 1{table QD Crestor 10 MG MG t} MG Dexilant 60 Dexilant 60 No 1{capsu QD Dexilant MG MG le} 60 MG hydroCHLORO hydroCHLORO No 1{table QD hydroCHLOR thiazide thiazide t_in_th Othiazide 12.5 MG 12.5 MG e_morni 12.5 MG ng} Chantix Chantix No 1{table BID Chantix Continuing Continuing t} Continuing Month Antwon 1 Month Antwon 1 Month Antwon MG MG 1 MG Lisinopril Lisinopril No Lisinopril 40 MG 40 MG 40 MG ZyrTEC ZyrTEC No 1{table QD ZyrTEC Allergy 10 Allergy 10 t} Allergy 10 MG MG MG Montelukast Montelukast No Montelukas Sodium 10 Sodium 10 t Sodium MG MG 10 MG Rosuvastati Rosuvastati No Rosuvastat n Calcium n Calcium in Calcium 20 MG 20 MG 20 MG Carvedilol Carvedilol No 1{table BID Carvedilol 12.5 MG 12.5 MG t_with_ 12.5 MG food} hydroCHLORO hydroCHLORO No hydroCHLOR thiazide thiazide Othiazide 12.5 MG 12.5 MG 12.5 MG Rosuvastati Rosuvastati No Rosuvastat n Calcium n Calcium in Calcium 10 MG 10 MG 10 MG hydroCHLORO hydroCHLORO No 1{table QD hydroCHLOR thiazide thiazide t_in_th Othiazide 12.5 MG 12.5 MG e_morni 12.5 MG ng} Chantix Chantix No 1{table BID Chantix Continuing Continuing t} Continuing Month [place] 1 Month Antwon 1 Month Antwon MG MG 1 MG Lisinopril Lisinopril No 1{table QD Lisinopril 40 MG 40 MG t} 40 MG Breo Breo No 1{puff} QD Breo Ellipta Ellipta Ellipta 200-25 200-25 200-25 MCG/INH MCG/INH MCG/INH Potassium Potassium No 1{table QD Potassium 99 MG 99 MG t} 99 MG Lisinopril Lisinopril No Lisinopril 40 MG 40 MG 40 MG Crestor 10 Crestor 10 No 1{table QD Crestor 10 MG MG t} MG Fenofibrate Fenofibrate No Fenofibrat 145 MG 145 MG e 145 MG Flonase 50 Flonase 50 No 1{spray QD Flonase 50 MCG/ACT MCG/ACT _in_eac MCG/ACT h_nostr il} ZyrTEC ZyrTEC No 1{table QD ZyrTEC Allergy 10 Allergy 10 t} Allergy 10 MG MG MG Fenofibrate Fenofibrate No 1{table QD Fenofibrat 145 MG 145 MG t_with_ e 145 MG food} Dexilant 60 Dexilant 60 No 1{capsu QD Dexilant MG MG le} 60 MG Carvedilol Carvedilol No Carvedilol Folic Acid Folic Acid No 1{table QD Folic Acid 400 MCG 400 MCG t} 400 MCG ProAir HFA ProAir HFA No 2{puffs QID ProAir HFA 108 (90 108 (90 _as_nee 108 (90 Base) Base) ded} Base) MCG/ACT MCG/ACT MCG/ACT Rosuvastati Rosuvastati No Rosuvastat n Calcium n Calcium in Calcium 10 MG 10 MG 10 MG Dexilant 60 Dexilant 60 No 1{capsu QD Dexilant MG MG le} 60 MG Immunizations Ordered Immunization Filled Immunization Date Status Commen ts Source Name Name Modern[facility] COVID-19 Moderna COVID-19 2021-06-19 Completed [facility] Moderna COVID-19 Moderna COVID-19 2021-06-19 Completed [facility] 08:40:00 [facility] Moderna COVID-19 Moderna COVID-19 2021-06-19 Completed [facility] 08:40:00 [facility] Moderna COVID-19 Moderna COVID-19 2021-06-19 Completed [facility] 08:40:00 [facility] Moderna COVID-19 Moderna COVID-19 2021-06-19 Completed [facility] 08:40:00 [facility] Moderna COVID-19 Moderna COVID-19 2021-06-19 Completed [facility] 08:40:00 [facility] Moderna COVID-19 Moderna COVID-19 2021-06-19 Completed [facility] 08:40:00 [facility] Moderna COVID-19 Moderna COVID-19 2021-06-19 Completed [facility] 08:40:00 [facility] Moderna COVID-19 Moderna COVID-19 2021-06-19 Completed [facility] 08:40:00 [facility] Moderna COVID-19 Moderna COVID-19 2021-06-19 Completed [facility] 08:40:00 - [facility] Moderna COVID-19 Moderna COVID-19 2021-06-19 Completed [facility] 08:40:00 [facility] Moderna COVID-19 Moderna COVID-19 2021-06-19 Completed [facility] 08:40:00 [facility] Moderna COVID-19 Moderna COVID-19 2021-06-19 Completed [facility] 08:40:00 [facility] Afluria Afluria 2021-06-09 Completed [facility] 09:14:00 [facility] Afluria Afluria 2021-06-09 Completed [facility] 09:14:00 [facility] Afluria Afluria 2021-06-09 Completed [facility] 09:14:00 [facility] Afluria Afluria 2021-06-09 Completed [facility] 09:14:00 [facility] Afluria Afluria 2021-06-09 Completed [facility] 09:14:00 [facility] Afluria Afluria 2021-06-09 Completed [facility] 09:14:00 [facility] Afluria Afluria 2021-06-09 Completed [facility] 09:14:00 [facility] Afluria Afluria 2021-06-09 Completed [facility] 09:14:00 [facility] Afluria Afluria 2021-06-09 Completed [facility] 09:14:00 [facility] Afluria Afluria 2021-06-09 Completed [facility] 09:14:00 [facility] Afluria Afluria 2021-06-09 Completed [facility] 09:14:00 [facility] Afluria Afluria 2021-06-09 Completed [facility] 09:14:00 [facility] Afluria Afluria 2021-06-09 Completed [facility] 09:14:00 [facility] Afluria Afluria 2021-06-09 Completed [facility] 09:14:00 [facility] Afluria Afluria 2021-06-09 Completed [facility] 09:14:00 [facility] Adacel (Tdap) Adacel (Tdap) 2020-05-04 [facility] Adacel (Tdap) Adacel (Tdap) 2020-05-04 [facility] Adacel (Tdap) Adacel (Tdap) 2020-05-04 [facility] Adacel (Tdap) Adacel (Tdap) 2020-05-04 [facility] Adacel (Tdap) Adacel (Tdap) 2020-05-04 [facility] Adacel (Tdap) Adacel (Tdap) 2020-05-04 [facility] Adacel (Tdap) Adacel (Tdap) 2020-05-04 [facility] Adacel (Tdap) Adacel (Tdap) 2020-05-04 [facility] Adacel (Tdap) Adacel (Tdap) 2020-05-04 [facility] Adacel (Tdap) Adacel (Tdap) 2020-05-04 [facility] Adacel (Tdap) Adacel (Tdap) 2020-05-04 [facility] Adacel (Tdap) Adacel (Tdap) 2020-05-04 [facility] Adacel (Tdap) Adacel (Tdap) 2020-05-04 [facility] Adacel (Tdap) Adacel (Tdap) 2020-05-04 [facility] Adacel (Tdap) Adacel (Tdap) 2020-05-04 [facility] Afluria single dose Afluria single dose 2020-04-23 Completed [facility] 16[facility]03:00 [facility] Afluria single dose Afluria single dose 2020-04-23 Completed [facility] 16:03:00 [facility] Afluria single dose Afluria single dose 2020-04-23 Completed [facility] 16:03:00 [facility] Afluria single dose Afluria single dose 2020-04-23 Completed [facility] 16:03:00 [facility] Afluria single dose Afluria single dose 2020-04-23 Completed [facility] 16:03:00 [facility] Afluria single dose Afluria single dose 2020-04-23 Completed [facility] 16:03:00 [facility] Afluria single dose Afluria single dose 2020-04-23 Completed [facility] 16:03:00 [facility] Afluria single dose Afluria single dose 2020-04-23 Completed [facility] 16:03:00 [facility] Afluria single dose Afluria single dose 2020-04-23 Completed [facility] 16:03:00 [facility] Afluria single dose Afluria single dose 2020-04-23 Completed [facility] 16:03:00 [facility] Afluria single dose Afluria single dose 2020-04-23 Completed [facility] 16:03:00 [facility] Afluria single dose Afluria single dose 2020-04-23 Completed [facility] 16:03:00 [facility] Afluria single dose Afluria single dose 2020-04-23 Completed [facility] 16:03:00 [facility] Afluria single dose Afluria single dose 2020-04-23 Completed [facility] 16:03:00 [facility] Afluria single dose Afluria single dose 2020-04-23 Completed [facility] 16:03:00 [facility]04 [facility] (Triam[facility] (Triamcinolone) 14:34:00 [facility] 2018[facility]10-04 Completed [facility] (Triamcinolone) (Triamcinolone) 14:34:00 [facility] 2018-10-04 Completed [facility] (Triamcinolone) (Triamcinolone) 14:34:00 [facility] 2017-10-16 Completed [facility] (Triamcinolone) (Triamcinolone) 15:03:00 [facility] 2017-10-16 Completed [facility] (Triamcinolone) (Triamcinolone) 15:03:00 [facility] 2017-10-16 Completed [facility] (Triamcinolone) (Triamcinolone) 15:03:00 [facility] Vital Signs Vital Name Observation Time Observation Value Comments Source height 2022-09-22 14:30:00 71.5 [in_i] [facility] weight 2022-09-22 14:30:00 294 [lb_av] [facility] temperature 2022-09-22 14:30:00 98 [degF] [facility] bmi 2022-09-22 14:30:00 40.43 kg/m2 [facility] blood pressure 2022-09-22 14:30:00 130 mm[Hg] [facility] - systolic [facility] blood pressure 2022-09-22 14:30:00 72 mm[Hg] [facility] height 2022-06-17 14:40:00 71.5 [in_i] [facility] weight 2022-06-17 14:40:00 293.0 [lb_av] Common [facility] temperature 2022-06-17 14:40:00 97.3 [degF] [facility] bmi 2022-06-17 14:40:00 40.29 kg/m2 Common S pirit [facility] oximetry 2022-06-17 14:40:00 97 % Common [facility] pirit [facility] respiratory rate 2022-06-17 14:40:00 17 /min Comm on [facility] blood pressure 2022-06-17 14:40:00 131 mm[Hg] Common [facility] blood pressure 2022-06-17 14:40:00 70 mm[Hg] [facility] height 2022-03-17 15:50:00 71.5 [in_i] Common [facility] pirit [facility] weight 2022-03-17 15:50:00 298 [lb_av] [facility] temperature 2022-03-17 15:50:00 97.6 [degF] Common S pirit [facility] bmi 2022-03-17 15:50:00 40.98 kg/m2 Common S pirit [facility] oximetry 2022-03-17 15:50:00 96 % Common S pirit [facility] respiratory rate 2022-03-17 15:50:00 16 /min Comm on [facility] blood pressure 2022-03-17 15:50:00 134 mm[Hg] Common [facility] blood pressure 2022-03-17 15:50:00 75 mm[Hg] [facility] height 2021-12-16 13:50:00 73 [in_i] [facility]irit [facility] weight 2021-12-16 13:50:00 310.6 [lb_av] Common [facility] temperature 2021-12-16 13:50:00 97.9 [degF] Common S pirit [facility] bmi 2021-12-16 13:50:00 40.97 kg/m2 Common [facility] oximetry 2021-12-16 13:50:00 97 % [facility] 2021-12-16 13:50:00 17 /min Comm on [facility] blood pressure 2021-12-16 13:50:00 138 mm[Hg] [facility] blood pressure 2021-12-16 13:50:00 76 mm[Hg] [facility] height 2021-11-09 09:40:00 73 [in_i] [facility] weight 2021-11-09 09:40:00 304.6 [lb_av] [facility] temperature 2021-11-09 09:40:00 97.9 [degF] Common S pirit [facility] bmi 2021-11-09 09:40:00 40.18 kg/m2 [facility] oximetry 2021-11-09 09:40:00 99 % [facility] 2021-11-09 09:40:00 18 /min Comm on [facility] blood pressure 2021-11-09 09:40:00 158 mm[Hg] [facility] blood pressure 2021-11-09 09:40:00 88 mm[Hg] [facility] height 2021-09-16 08:40:00 73 [in_i] [facility] weight 2021-09-16 08:40:00 307.7 [lb_av] [facility] temperature 2021-09-16 08:40:00 98.0 [degF] [facility] pirit [facility] bmi 2021-09-16 08:40:00 40.59 kg/m2 Common [facility] oximetry 2021-09-16 08:40:00 97 % [facility] respiratory rate 2021-09-16 08:40:00 18 /min Comm on [facility] blood pressure 2021-09-16 08:40:00 138 mm[Hg] [facility] blood pressure 2021-09-16 08:40:00 76 mm[Hg] [facility] height 2021-07-07 13:50:00 73 [in_i] Common [facility] weight 2021-07-07 13:50:00 309.1 [lb_av] [facility] temperature 2021-07-07 13:50:00 97.0 [degF] [facility] bmi 2021-07-07 13:50:00 40.78 kg/m2 [facility] oximetry 2021-07-07 13:50:00 94 % [facility] respiratory rate 2021-07-07 13:50:00 19 /min Comm on [facility] blood pressure 2021-07-07 13:50:00 135 mm[Hg] [facility] blood pressure 2021-07-07 13:50:00 83 mm[Hg] [facility] height 2021-06-09 08:50:00 73 [in_i] Common [facility] weight 2021-06-09 08:50:00 319.3 [lb_av] [facility] temperature 2021-06-09 08:50:00 97.3 [degF] [facility] bmi 2021-06-09 08:50:00 42.12 kg/m2 [facility] oximetry 2021-06-09 08:50:00 97 % [facility] respiratory rate 2021-06-09 08:50:00 18 /min Comm on [facility] blood pressure 2021-06-09 08:50:00 128 mm[Hg] [facility] blood pressure 2021-06-09 08:50:00 71 mm[Hg] [facility] HEIGHT 2020-01-04 00:00:00 185.4 cm WEIGHT 2020-01-04 00:00:00 140.615 kg Procedures This patient has no known procedures. Encounters Start End Encounter Admission Attending Care Care Encounter Source Date/Time Date/Time Type Type Clinicians Facility Department ID 2022-09-22 Outpatient Ortez, STLMLC STLMLC [id number] Common 08:21:01 Tanvir [id number] [facility] 2022-09-17 Outpatient Ortez, STLMLC STLMLC [id number] Common 15:23:00 Tanvir [facility] 2022-06-18 Outpatient Ortez, STLMLC STLMLC [id number] Common 09:36:00 Tanvir [facility] 2022-06-15 Outpatient Ortez, STLMLC STLMLC [id number] Common 11:37:00 Tanvir [facility] 2021-12-17 Outpatient Ortez, STLMLC STLMLC [id number] Common 07:15:01 Tanvir [facility] 2021-11-10 Outpatient Ortez, STLMLC STLMLC [id number] Common 08:52:00 Tanvir [facility] 2021-09-16 Outpatient Ortez, STLMLC STLMLC [id number] Common 14:39:45 Tanvir [facility] 2021-09-16 Outpatient Ortez, STLMLC STLMLC [id number] Common 14:14:05 Tanvir [facility] 2021-09-16 Outpatient Ortez, STLMLC STLMLC [id number] Common 14:02:43 Tanvir [facility] 2021-09-16 Outpatient Ortez, STLMLC STLMLC [id number] Common 14:02:07 Tanvir [id number] [facility] 2021-09-16 Outpatient Ortez, STLMLC STLMLC [id number] Common 13:27:53 Tanvir [id number] [facility] 2021-09-16 Outpatient Ortez, STLMLC STLMLC [id number] Common 12:54:15 Tanvir 61183 [facility] 2021-09-16 Outpatient Ortez, STLMLC STLMLC [id number] Common 12:46:20 Tanvir 75608 [facility] 2021-09-16 Outpatient Ortez, STLMLC STLMLC [id number] Common 12:23:02 Tanvir [id number] [facility] 2021-09-16 Outpatient Ortez, STLMLC STLMLC [id number] Common 11:17:44 Tanvir 42756 [facility] 2021-09-16 Outpatient Ortez, STLMLC STLMLC [id number] Common 11:15:21 Tanvir 54757 [facility] 2021-09-16 Outpatient Ortez, STLMLC STLMLC [id number] Common 11:11:41 Tanvir [id number] [facility] 2021-09-16 Outpatient Ortez, STLMLC STLMLC [id number] Common 11:00:15 Tanvir [id number] [facility] 2021-09-16 Outpatient Ortez, STLMLC STLMLC [id number] Common 10:58:44 Tanvir 47146 [facility] 2022-09-22 2022-09-22 OFFICE STLMLC STLMLC [id number] Co mmon 00:00:00 00:00:00 VISIT [facility] LEVEL 4 [facility] 2022-07-05 2022-07-05 (TEL) STLMLC STLMLC [id number] Co mmon 00:00:00 00:00:00 [facility] 2022-06-172022-06-17 OFFICE STLMLC STLMLC [id number] Co mmon 00:00:00 00:00:00 [facility] LEVEL 4 [facility] 2022-05-20 2022-05-20 (TEL) STLMLC STLMLC [id number] Co mmon 00:00:00 00:00:00 [facility] 2022-03-17 2022-03-17 (TEL) STLMLC STLMLC [id number] Co mmon 00:00:00 00:00:00 [facility] 2022-03-17 2022-03-17 OFFICE STLMLC STLMLC [id number] Co mmon 00:00:00 00:00:00 [facility] - [facility] LEVEL 4 [facility] 2021-12-16 2021-12-16 (WELLNESS) STLMLC STLMLC [id number] Common 00:00:00 00:00:00 [facility] Sp[facility] t Visit [facility] 2021-11-09 2021-11-09 (TEL) STLMLC STLMLC [id number] Co mmon 00:00:00 00:00:00 [facility] 2021-11-09 2021-11-09 OFFICE STLMLC STLMLC [id number] Co mmon 00:00:00 00:00:00 VISIT EST Spir it PT LEVEL 3 - [facility] 2021-09-16 2021-09-16 OFFICE STLMLC STLMLC [id number] Co mmon 00:00:00 00:00:00 [facility] - [facility] LEVEL 4 [facility] 2021-07-07 2021-07-07 (TEL) STLMLC STLMLC [id number] Co mmon 00:00:00 00:00:00 [facility] 2021-07-07 2021-07-07 OFFICE STLMLC STLMLC [id number] Co mmon 00:00:00 00:00:00 [facility] - [facility] LEVEL 4 [facility] 2021-06-19 2021-06-19 (COVID STLMLC STLMLC [id number] Co mmon 00:00:00 00:00:00 Inj) COVID Spi rit Injection [facility] 2021-06-18 2021-06-18 (TEL) STLMLC STLMLC [id number] Co mmon 00:00:00 00:00:00 [facility] 2021-06-09 2021-06-09 OFFICE STLMLC STLMLC [id number] Co mmon 00:00:00 00:00:00 VISIT EST Spir it PT LEVEL 3 [facility] 2021-03-09 2021-03-09 Outpatient STLMLC STLMLC [id number] Common 00:00:00 00:00:00 [facility] 2020-12-09 2020-12-09 Outpatient STLMLC STLMLC [id number] Common 00:00:00 00:00:00 [facility] 2020-12-05 2020-12-05 Outpatient STLMLC STLMLC [id number] Common 00:00:00 00:00:00 [facility] 2020-12-04 2020-12-04 Outpatient STLMLC STLMLC [id number] Common 00:00:00 00:00:00 [facility] 2020-11-20 2020-11-20 Outpatient STLMLC STLMLC [id number] Common 00:00:00 00:00:00 [facility] 2020-09-09 2020-09-09 Outpatient STLMLC STLMLC [id number] Common 00:00:00 00:00:00 [facility] 2020-07-03 2020-07-03 Outpatient STLMLC STLMLC [id number] Common 00:00:00 00:00:00 [facility] 2020-06-09 2020-06-09 Outpatient STLMLC STLMLC [id number] Common 00:00:00 00:00:00 [facility] 2020-06-09 2020-06-09 Outpatient STLMLC STLMLC [id number] Common 00:00:00 00:00:00 [facility] 2020-05-30 2020-05-30 Outpatient JAGJIT THORNTON SLE [id number] [facility] 00:00:00 00:00:00 [facility] 2020-05-20 2020-05-20 Outpatient [facility] [id number] [facility] 00:00:00 00:00:00 2020-05-20 2020-05-20 Outpatient [facility] [id number] [facility] 00:00:00 00:00:00 2020-04-30 2020-04-30 [facility] [id number] Common 15:00:00 15:00:[address] [facility] 2020-04-22 2020-04-22 [facility] [id number] Common 15:30:00 15:30:[address] [facility] 2020-04-15 2020-04-15 [facility] [id number] Common 15:30:00 15:30:[address] [facility] 2020-04-08 2020-04-08 [facility] [id number] Common 15:30:00 15:30:[address] [facility] 2020-04-01 2020-04-01 [facility] [id number] Common 14:45:00 14:45:[address] [facility] 2020-03-17 2020-03-17 [facility] [id number] Common 15:30:00 15:30:[address] [facility] 2020-03-10 2020-03-10 [facility] [id number] Common 14:30:00 14:30:[address] [facility] 2020-03-06 2020-03-06 [facility] [id number] Common 08:30:00 08:30:[address] [facility] 2020-03-03 2020-03-03 [facility] [id number] Common 08:30:00 08:30:[address] Family - [facility] 2020-02-28 2020-02-28 [facility] [id number] Common 15:49:00 15:49:[address] [facility] 2020-02-26 2020-02-26 [facility] [id number] Common 15:40:00 15:40:[address] [facility] 2020-02-20 2020-02-20 [facility] [id number] Common 15:45:00 15:45:[address] [facility] 2020-02-20 2020-02-20 [facility] [id number] Common 07:00:00 07:00:[address] [facility] 2020-02-12 2020-02-12 [facility] [id number] Common 15:00:00 15:00:[address] [facility] 2020-02-05 2020-02-05 [facility] [id number] Common 15:45:00 15:45:[address] [facility] 2020-01-29 2020-01-29 [facility] [id number] Common 15:45:00 15:45:[address] [facility] 2020-01-23 2020-01-23 [facility] [id number] Common 16:44:00 16:44:[address] [facility] 2020-01-22 2020-01-22 [facility] [id number] Common 15:45:00 15:45:[address] [facility] 2020-01-15 2020-01-15 [facility] [id number] Common 15:45:00 15:45:[address] [facility] 2020-01-08 2020-01-08 [facility] [id number] Common 15:00:00 15:00:[address] [facility] 2020-01-04 2020-01-04 Outpatient [facility] [id number] SLE 00:00:00 00:00:00 [id number] 2020-01-04 2020-01-04 Outpatient NILSON ALONZO, [facility] [id number] SLE 00:00:00 00:00:00 MAYURI 2019-12-31 2019-12-31 [facility] [id number] Common 16:00:00 16:00:[address] [facility] 2019-12-24 2019-12-24 [facility] [id number] Common 15:30:00 15:30:[address] [facility] 2019-12-20 2019-12-20 [facility] [id number] Common 13:19:00 13:19:[address] [facility] 2019-12-17 2019-12-17 [facility] [id number] Common 15:45:00 15:45:[address] [facility] 2019-12-13 2019-12-13 [facility] [id number] Common 09:21:00 09:21:[address] [facility] 2019-12-10 2019-12-10 [facility] [id number] Common 16:30:00 16:30:[address] [facility] 2019-12-04 2019-12-04 [facility] [id number] Common 13:30:00 13:30:[address] [facility] 2019-12-03 2019-12-03 [facility] [id number] Common 08:15:00 08:15:[address] [facility] 2019-11-29 2019-11-29 [facility] [id number] Common 09:30:00 09:30:[address] [facility] 2019-11-16 2019-11-16 [facility] [id number] Common 09:34:00 09:34:[address] [facility] 2019-11-06 2019-11-06 [facility] [id number] Common 15:30:00 15:30:[address] [facility] 2019-10-30 2019-10-30 [facility] [id number] Common 15:30:00 15:30:[address] [facility] 2019-10-23 2019-10-23 [facility] [id number] Common 15:30:00 15:30:[address] [facility] 2019-10-16 2019-10-16 [facility] [id number] Common 15:30:00 15:30:[address] [facility] 2019-10-09 2019-10-09 Out[facility] [id number] Common 15:30:00 15:30:[address] [facility] 2019-10-02 2019-10-02 [facility] [id number] Common 15:30:00 15:30:[address] [facility] 2019-09-25 2019-09-25 [facility] [id number] Common 15:30:00 15:30:[address] [facility] 2019-09-18 2019-09-18 Out[facility] [id number] Common 15:30:00 15:30:[address] [facility] 2019-09-11 2019-09-11 [facility] [id number] Common 15:30:00 15:30:[address] [facility] 2019-09-03 2019-09-03 [facility] [id number] Common 15:30:00 15:30:[address] [facility] 2019-08-28 2019-08-28 [facility] [id number] Common 15:15:00 15:15:[address] [facility] 2019-08-21 2019-08-21 [facility] [id number] Common 08:45:00 08:45:[address] [facility] 2019-08-13 2019-08-13 [facility] [id number] Common 15:45:00 15:45:[address] [facility] 2019-08-06 2019-08-06 [facility] [id number] Common 15:45:00 15:45:[address] [facility] 2019-07-30 2019-07-30 [facility] [id number] Common 15:45:00 15:45:[address] [facility] 2019-07-24 2019-07-24 [facility] [id number] Common 15:45:00 15:45:[address] [facility] 2019-07-17 2019-07-17 [facility] [id number] Common 16:04:00 16:04:[address] [facility] 2019-07-16 2019-07-16 [facility] [id number] Common 15:45:00 15:45:[address] [facility] 2019-07-09 2019-07-09 Out[facility] [id number] Common 15:45:00 15:45:[address] [facility] 2019-06-27 2019-06-27 [facility] [id number] Common 16:30:00 16:30:[address] [facility] 2019-06-20 2019-06-20 [facility] [id number] Common 08:00:00 08:00:[address] [facility] 2019-06-19 2019-06-19 Out[facility] [id number] Common 09:40:00 09:40:[address] [facility] 2019-06-12 2019-06-12 Out[facility] [id number] Common 16:15:00 16:15:[address] [facility] 2019-06-05 2019-06-05 Out[facility] [id number] Common 16:15:00 16:15:[address] [facility] 2019-05-29 2019-05-29 Out[facility] [id number] Common 16:15:00 16:15:[address] [facility] 2019-05-22 2019-05-22 [facility] [id number] Common 16:15:00 16:15:[address] [facility] 2019-05-15 2019-05-15 [facility] [id number] Common 16:30:00 16:30:[address] [facility] 2019-05-02 2019-05-02 Out[facility] [id number] Common 15:59:00 15:59:[address] [facility] 2019-05-02 2019-05-02 [facility] [id number] Common 11:45:00 11:45:[address] [facility] 2018-11-20 2018-11-20 [facility] [id number] Common 08:00:00 08:00:[address] [facility] 2018-11-16 2018-11-16 [facility] [id number] Common 11:47:00 11:47:[address] [facility] 2018-11-13 2018-11-13 [facility] [id number] Common 08:04:00 08:04:[address] [facility] 2018-11-10 2018-11-10 [facility] [id number] Common 09:30:00 09:30:[address] [facility] 2018-10-10 2018-10-10 [facility] [id number] Common 12:00:00 12:00:[address] [facility] 2018-10-10 2018-10-10 [facility] [id number] Common 09:40:00 09:40:[address] [facility] 2018-10-10 2018-10-10 [facility] [id number] Common 09:30:00 09:30:[address] [facility] 2018-10-04 2018-10-04 [facility] [id number] Common 14:15:00 14:15:[address] [facility] 2018-08-08 2018-08-08 [facility] [id number] Common 15:45:00 15:45:[address] [facility] Results Test Description Test Time Test Comments Results Result Sour e Comments TISSUE EXAM Surgical Pathology Report 9 Case: [id number] 09:06:00 Authorizing Provider: Yenni Lee MD Collected: 12/21/2018 1025 Ordering Location: [facility] Received: 12/21/2018 1118 SERVICES Pathologist: Philippe Jacobo MD Specimen: Adrenal, Right PART A RIGHT ADRENAL, ADRENALECTOMY (45.7 G):ADRENOCORTICAL ADENOMA WITH CYSTIC DEGENERATION.NEGATIVE FOR MALIGNANCY. Signing Pathologist Direct Phone Line: [phone] signed by Philippe Jacobo MD on 12/28/2018 at 9:06 AMImmunohistochemical studies performed on block A4 demonstrate the adrenal cortical cells to be positive for calretinin, inhibin, and synaptophysin (partial). They are negative for PAX8 and S100. CD68 is positive in scattered macrophages.This case was reviewed with Dr. Sly Back, who concurs with the above interpretation. 85241, 71216, [id number] adrenalectomy, laparoscopic right adrenalectomy. Preoperative and postoperative [...] attached adipose tissue.Ink code: Margin is inked leo.Mill Operator Helper sections are submitted from the specimen.Section code: [...] stains.BLOCK A4- INHIBIN, CALRETININ, SYNAPTOPHYSIN, CD68, S100, [id number] Slides Examined: In-house known positive controls were evaluated along with the test tissue. These control slides run alongside of the patients sample show appropriate staining. Internal positive and negative controls when available are evaluated Immunohistochemistry technical testing was performed at [facility] Pathology Laboratory where it was developed and [...] 2018-12-18 14:40:00 Test Item Value Reference Range Interpretation Comme nts SODIUM (BEAKER) (test code = 381) 137 meq/L 136-145 POTASSIUM (BEAKER) (test code = 379) 4.3 meq/L 3.5-5.1 Specimen slightly hemolyzed CHLORIDE (BEAKER) (test code = 382) 102 meq/L 98-107 CO2 (BEAKER) (test code = 355) 24 meq/L 22-29 BUN AND [id number] 14:40:00 Test Item Value Reference Range Interpretation Comments BLOOD UREA NITROGEN 14 mg/dL 7-21 (BEAKER) (test code = 354) CREATININE (BEAKER) 1.00 mg/dL 0.57-1.25 Specimen slightly (test code = 358) hemolyzed EGFR (BEAKER) (test 77 mL/min/1.73 ESTIMA KADEN GFR IS code = 1092) sq m NOT ACCURATE CREATININE CLEARANCE IN PREDICTING GLOMERULAR FILTRATION RATE . ESTIMATED GFR I S NOT APPLICABLE FOR DIALYSIS PATIEN TS. [id number] 14:23:00 Test Item Value Reference Range Interpretation Comments HEMOGLOBIN (BEAKER) (test code = 12.9 GM/DL 13.7-17.5 L 410)
[2023-03-06] MEDS ORDERED: LIDOCAINE 1% MPF 30 ML VIAL ONE (18:06)
[2023-03-06 18:09] LABS: Absolute Lymphocytes (CBC) 1.8 K/uL (0.7-4.9); Hematocrit 38.8 % (39.6-49.0); Lymphocytes % 21.6 % (15.3-44.8); MCV 94.2 fL (80-100); MPV 6.5 fL (7.6-11.3); RBC Red Blood Cell Count 4.12 M/uL (4.33-5.43)
[2023-03-06 18:13] LABS: Protime INR 1.03
[2023-03-06] MEDS ORDERED: NA CHLORIDE 0.9% 100 ML ONE (18:22)
[2023-03-06] MEDS ORDERED: CEFAZOLIN SODIUM 1 GM/VIAL ONE (18:22)
[2023-03-06] MEDS ORDERED: TDAP (DIPHTH,PERTUSS(ACELL),TET VAC) 0.5 ML VIAL IMVAC ONE (18:22)
[2023-03-06] MEDS ORDERED: CEPHALEXIN 250 MG CAP ONE (18:22)
[2023-03-06] MEDS ORDERED: NA CHLORIDE 0.9% 1,000 ML ONE (18:22)
[2023-03-06] MEDS ORDERED: ONDANSETRON 4 MG/2 ML VIAL ONE ×2 (18:22→19:51)
[2023-03-06] MEDS ORDERED: SMZ./TMP. 800/160 MG TABLET ONE (18:22)
[2023-03-06 18:39] LABS: ALT/SGPT 31 U/L (16-61); AST/SGOT 46 U/L (15-37); Albumin 3.4 g/dL (3.4-5.0); Alkaline Phosphatase 64 U/L (45-117); BUN Blood Urea Nitrogen 12 mg/dL (7-18); Bicarbonate 20 mEq/L (21-32); Bilirubin Direct 0.2 mg/dL (0-0.2); Bilirubin Indirect, Calculated 0.3 mg/dL (0.2-0.8); Bilirubin Total 0.5 mg/dL (0.2-1.0); Glomerular Filtration Rate 42 ml/min (=/>90); Glucose Level 100 mg/dL (74-106); Potassium 3.3 mEq/L (3.5-5.1); Protein, Total 6.6 g/dL (6.4-8.2); Sodium Level 134 mEq/L (136-145)
--- NOTE | 2023-03-06 18:55 | RAD REPORT ---
EXAM DESCRIPTION: CT - CTHCSPWOC - 03/06/2023 6:27 pm CLINICAL HISTORY: PAIN COMPARISON: Facial Bones W/ Mpr dated 03/06/2023 TECHNIQUE: Axial thin cut noncontrast CT images of the head were obtained. Axial thin cut noncontrast CT images of the cervical spine were obtained. Multiplanar reformatted images were generated and reviewed. All CT scans are performed using dose optimization technique as appropriate and may include automated exposure control or mA/KV adjustment according to patient size. FINDINGS: CT HEAD WITHOUT CONTRAST: No acute hemorrhage, hydrocephalus or extra-axial collection is identified.No areas of brain edema or midline shift. The paranasal sinuses and mastoids are clear.The calvarium is intact. CT CERVICAL SPINE WITHOUT CONTRAST: No fracture or subluxation.Multilevel degenerative changes, with facet and uncovertebral joint spurri ng most pronounced at C3-4 and C4-5 bilaterally, and C5-6 on the right, contributing to at least mode rate neural foraminal narrowing. Gentle reversal of lordosis.No prevertebral soft tissues swelling is identified. IMPRESSION: No acute traumatic intracranial or cervical spine findings. Cervical spine degenerative changes as above.
--- NOTE | 2023-03-06 18:58 | RAD REPORT ---
EXAM DESCRIPTION: CT - CTFB CLINICAL HISTORY: Facial pain;Deformity COMPARISON: No comparisons TECHNIQUE: Axial thin axial noncontrast CT images of the face were obtained with sagittal and briscoe l reconstruction images. All CT scans are performed using dose optimization technique as appropriate and may include automated exposure control or mA/KV adjustment according to patient size. FINDINGS: Nondisplaced bilateral nasal bone fractures. Overlying soft tissue swelling. Zygomaticomaxillary complexes, orbital and paranasal sinus margins, pterygoid plates, skullbase, and mandible show no acute fractures. The globes and orbital contents are grossly unremarkable.The paranasal sinuses and mastoids are clear . IMPRESSION: Nondisplaced bilateral nasal bone fracture.No other acute osseous abnormality.
--- NOTE | 2023-03-06 19:03 | RAD REPORT ---
EXAM DESCRIPTION: Ryan Single View03/06/2023 6:43 pm CLINICAL HISTORY: COUGH COMPARISON: Chest Pa And Lat (2 Views) dated 10/16/2017; CHEST PA AND LAT 2 VIEW dated 07/30/2013 TECHNIQUE: Portable AP view of the chest. FINDINGS: Decreased inspiratory effort limits evaluation. The lungs are clear. Bibasilar atelectatic changes. No pneumothorax or effusion. The cardiomediastinal contours are unremarkable. IMPRESSION: No acute cardiopulmonary process.
--- NOTE | 2023-03-06 19:29 | EDPHYS ---
Physician Documentation [facility] Name: José Miguel Burns Age: 63 yrs Sex: Male : 1960 Arrival Date: 03/06/2023 Time: 17:31 Bed 4 Private MD: ED Physician Fredrick Padron HPI: 03/06 18:21 This 63 yrs old Male presents to ER via EMS with complaints of Fall Injury. drew 18:21 Details of fall: The patient fell from an upright position, while walking. drew Historical: - Allergies: 17:46 No Known Allergies; jl7 - PMHx: 17:46 Hyperlipidemia; Hypertension; jl7 - Immunization history:: Adult Immunizations unknown. - Social history:: Smoking status: unknown. ROS: 18:29 Constitutional: Negative for fever, chills, and weight loss, Eyes: Negative for injury, drew pain, redness, and discharge, Neck: Negative for injury, pain, and swelling, Cardiovascular: Negative for chest pain, palpitations, and edema, Respiratory: Negative for shortness of breath, cough, wheezing, and pleuritic chest pain, Abdomen/GI: Negative for abdominal pain, nausea, vomiting, diarrhea, and constipation, Back: Negative for injury and pain, : Negative for injury, bleeding, discharge, and swelling, MS/Extremity: Negative for injury and deformity, Skin: Negative for injury, rash, and discoloration, Psych: Negative for depression, anxiety, suicide ideation, homicidal ideation, and hallucinations, Allergy/Immunology: Negative for hives, rash, and allergies, Endocrine: Negative for neck swelling, polydipsia, polyuria, polyphagia, and marked weight changes. 18:29 ENT: Positive for injury or acute deformity, contusion, laceration, nose bleed, sinus congestion. 18:29 Skin: Positive for laceration(s). Exam: 18:29 Constitutional: This is a well developed, well nourished patient who is awake, alert, drew and in no acute distress. Eyes: Pupils equal round and reactive to light, extra-ocular motions intact. Lids and lashes normal. Conjunctiva and sclera are non-icteric and not injected. Cornea within normal limits. Periorbital areas with no swelling, redness, or edema. Neck: Trachea midline, no thyromegaly or masses palpated, and no cervical lymphadenopathy. Supple, full range of motion without nuchal rigidity, or vertebral point tenderness. No Meningismus. Chest/axilla: Normal chest wall appearance and motion. Nontender with no deformity. No lesions are appreciated. Cardiovascular: Regular rate and rhythm with a normal S1 and S2. No gallops, murmurs, or rubs. Normal PMI, no JVD. No pulse deficits. Respiratory: Lungs have equal breath sounds bilaterally, clear to auscultation and percussion. No rales, rhonchi or wheezes noted. No increased work of breathing, no retractions or nasal flaring. Abdomen/GI: Soft, non-tender, with normal bowel sounds. No distension or tympany. No guarding or rebound. No evidence of tenderness throughout. Back: No spinal tenderness. No costovertebral tenderness. Full range of motion. Skin: Warm, dry with normal turgor. Normal color with no rashes, no lesions, and no evidence of cellulitis. MS/ Extremity: Pulses equal, no cyanosis. Neurovascular intact. Full, normal range of motion. Neuro: Awake and alert, GCS 15, oriented to person, place, time, and situation. Cranial nerves II-XII grossly intact. Motor strength 5/5 in all extremities. Sensory grossly intact. Cerebellar exam normal. Normal gait. Psych: Awake, alert, with orientation to person, place and time. Behavior, mood, and affect are within normal limits. 18:29 Head/face: Noted is contusion, that is deep, hematoma, a laceration(s), that is deep, that is jagged, 4 cm(s), swelling, that is moderate, of the right eye, nose and left eye. 19:32 ECG was reviewed by the Attending Physician. [facility] Vital Signs: 17:43 BP 136 / 102; Pulse 80; Resp 15; Pulse Ox 91% ; jl7 19:23 BP 113 / 71; vg1 20:15 BP 119 / 72; Pulse 91; Resp 19; Pulse Ox 98% ; vc1 Laceration: 18:31 Wound Repair of 4cm ( 1.6in ) subcutaneous laceration to nose. Irregularly shaped.. [facility] Skin/tissue flap noted.. Distal neuro/vascular/tendon intact. Anesthesia: Local anesthetic administered with 6 mls of 1% lidocaine. Wound prep: Moderate cleansing by me, Copious irrigation. Skin closed with 7 5-0 Prolene using interrupted sutures and sterile technique. Dressed with Neosporin, non-adherent dressing. Patient tolerated well. MDM: 17:43 Patient medically screened. drew 19:29 Differential diagnosis: closed head injury, contusion, fracture, laceration, multiple drew trauma, sprain, strain. Data reviewed: vital signs, nurses notes, lab test result(s), EKG, radiologic studies, CT scan, plain films. Consideration of Admission/Observation Escalation of care including admission/observation considered. Management of patient was discussed with the following: Reference Librarian: higinio lara. I considered the following discharge prescriptions or medication management in the emergency department Medications were administered in the Emergency Department. See MAR. Independent interpretation of the following test(s) in the Emergency Department EKG: See my EKG interpretation above. Test considered but Not performed: MRI: no facial , head mri. Historians other than the Patient: Spouse/Significant Other: well informed. Care significantly affected by the following chronic conditions: Hypertension, Obesity, hyperlipidemia. Counseling: I had a detailed discussion with the patient and/or guardian regarding: the historical points, exam findings, and any diagnostic results supporting the discharge/admit diagnosis, the presence of at least one elevated blood pressure reading (>120/80) during this emergency department visit, lab results, radiology results, the need for outpatient follow up, for definitive care, an ENT specialist, a family practitioner. 03/06 17:51 Order name: Acetaminophen; Complete Time: 18:54 [facility] 03/06 17:51 Order name: Basic Metabolic Panel; Complete Time: 18:54 [facility] 03/06 17:51 Order name: CBC with Diff; Complete Time: 18:54 [facility] 03/06 17:51 Order name: ETOH Level; Complete Time: 18:54 [facility] 03/06 17:51 Order name: Hepatic Function; Complete Time: 18:54 [facility] 03/06 17:51 Order name: PT-INR; Complete Time: 18:54 [facility] 03/06 17:51 Order name: Ptt, Activated; Complete Time: 18:54 [facility] 03/06 17:51 Order name: Salicylate; Complete Time: 18:54 [facility] 03/06 17:51 Order name: Chest Single View XRAY; Complete Time: 19:26 [facility] 03/06 17:51 Order name: CT Head C Spine; Complete Time: 19:26 [facility] 03/06 17:51 Order name: CT Facial Bones W/O Con; Complete Time: 19:26 [facility] 03/06 17:51 Order name: EKG; Complete Time: 17:52 [facility] 03/06 17:51 Order name: EKG - Nurse/Tech; Complete Time: 19:27 [facility] 03/06 17:51 Order name: IV Saline Lock; Complete Time: 19:27 [facility] 03/06 17:51 Order name: Labs collected and sent; Complete Time: 18:03 [facility] 03/06 17:51 Order name: Suicide Screening ([place]); Complete Time: 18:03 [facility] 03/06 17:51 Order name: Dressing - Wound; Complete Time: 19:26 [facility] 03/06 17:51 Order name: Gloves, Sterile; Complete Time: 18:03 [facility] 03/06 17:51 Order name: Prolene, Sutures; Complete Time: 18:03 [facility] 03/06 17:51 Order name: Setup Suture Tray; Complete Time: 18:03 [facility] 03/06 18:19 Order name: Ice pack; Complete Time: 19:26 [facility] EC:32 Rate is 85 beats/min. Rhythm is regular. QRS [place] is Normal. MS interval is prolonged drew at 24 msec. QRS interval is normal. QT interval is normal. No Q waves. T waves are Normal. No ST changes noted. Clinical impression: NSR w/ Non-specific ST/T Changes, 1st degree heart block, and No evidence of ischemia. Interpreted by me. Reviewed by me. Administered Medications: 18:55 Drug: Cephalexin PO 500 mg Route: PO; vg1 18:55 Drug: Trimethoprim-Sulfamethoxazole PO (160 mg-800 mg (DS) 1 tablet Route: PO; vg1 18:56 Drug: Ondansetron IVP 4 mg Route: IVP; Site: right antecubital; vg1 18:56 Drug: NS 0.9% IV 1000 ml Route: IV; Rate: 1 bolus; Site: right antecubital; vg1 18:59 Drug: Tetanus Toxoid,Adsorbed IM 0.5 ml {Reel Cart Operator: [employer] Exp: vg1 07/30/2023. Lot #: [id number]. } Route: IM; Site: left deltoid; 19:00 Drug: Lidocaine Infiltration (1 %) 10 ml {Note: administered by provider .} Volume: 20 as6 ml; Route: Infiltration; 19:04 Drug: ceFAZolin IVPB 2 grams Route: IVPB; Infused Over: 30 mins; Site: right vg1 antecubital; 19:47 Drug: fentaNYL (PF) IVP 50 mcg Route: IVP; Site: right antecubital; as6 19:47 Drug: Ondansetron IVP 4 mg Route: IVP; Site: right antecubital; as6 19:48 Drug: Mupirocin Topical Ointment 2 % 1 application Route: Topical; Site: affected area; as6 19:48 Drug: Rocephin IV 2 grams Route: IV; Rate: per protocol; Site: right antecubital; as6 Disposition Summary: 03/06/23 19:28 Discharge Ordered Location: Home drew Problem: new drew Symptoms: have improved drew Condition: Fair drew Diagnosis - Alcohol abuse with intoxication drew - Fall on same level, unspecified drew - Laceration without foreign body of unspecified part of head - nasal laceration, drew complex - Hypokalemia drew - Unspecified kidney failure drew - Fracture of nasal bones - nondisplaced bilateral nasal bones drew Followup: drew - With: Private Physician - When: 2 - 3 days - Reason: Recheck today's complaints, Continuance of care, Re-evaluation by your physician Followup: drew - With: - When: Tomorrow - Reason: Recheck today's complaints, Re-evaluation by your physician Discharge Instructions: - Discharge Summary Sheet drew - Alcohol Intoxication drew - Potassium Content of Foods drew - Laceration Care, Adult drew - Facial Laceration drew - Nasal Fracture drew - Alcohol Intoxication, Zmss-bg-Bjwi drew - Laceration Care, Adult, Rjvd-vd-Yfyd drew - Facial Laceration, Ivii-hy-Watb drew - Nasal Fracture, Olgp-zz-Korb drew - Chronic Kidney Disease, Adult, Gptj-io-Aonx drew - Hypokalemia drew Forms: - Medication Reconciliation Form drew - Thank You Letter drew - Antibiotic Education drew - Prescription Opioid Use drew - Patient Portal Instructions drew Prescriptions: - Centany 2 % Topical ointment - apply 1 application by TOPICAL route 4 times per day; 15 gram tube; Refills: 0, drew Product Selection Permitted - acetaminophen-codeine 300-30 mg Oral tablet - take 2 tablet by ORAL route 4 times per day as needed for pain; 20 tablet; [facility] Refills: 0, Product Selection Permitted - Cephalexin 500 mg Oral Capsule - take 1 capsule by ORAL route every 6 hours for 10 days; 40 capsule; Refills: 0, [facility] Product Selection Permitted - Bactrim DS 800-160 mg Oral Tablet - take 1 tablet by ORAL route every 12 hours for 10 days; 20 tablet; Refills: 0, [facility] Product Selection Permitted Signatures: Dispatcher [employer] Fredrick Santiago MD MD cha Leal, Jahala RN RN jl7 Cherry Ochoa RN RN vg1 Wade Oliver, RN RN as6
--- NOTE | 2023-03-06 19:29 | ER ---
Nurse's Notes [facility] Name: José Miguel Burns Age: 63 yrs Sex: Male : 1960 Arrival Date: 03/06/2023 Time: 17:31 Bed 4 Private MD: Diagnosis: Alcohol abuse with intoxication;Fall on same level, unspecified;Laceration without foreign body of unspecified part of head-nasal laceration, complex;Hypokalemia;Unspecified kidney failure;Fracture of nasal bones-nondisplaced bilateral nasal bones Presentation: 03/06 17:43 Chief complaint: EMS states: Toned out for mechanical fall, pt fell forward on tile jl7 floor and presents to ED with large laceration to bridge of nose. Pt denies pain, reports drinking [place] since 1300. Coronavirus screen: At this time, the client does not indicate any symptoms associated with coronavirus-19. Ebola Screen: No symptoms or risks identified at this time. Initial Sepsis Screen: Does the patient meet any 2 criteria? No. Patient's initial sepsis screen is negative. Does the patient have a suspected source of infection? No. Patient's initial sepsis screen is negative. Risk Assessment: Do you want to hurt yourself or someone else? Patient reports no desire to harm self or others. Onset of symptoms was March 06, 2023 at 17:00. 17:43 Method Of Arrival: EMS: [place] [id number] 17:43 Acuity: CARLY 3 jl7 Historical: - Allergies: 17:46 No Known Allergies; jl7 - PMHx: 17:46 Hyperlipidemia; Hypertension; jl7 - Immunization history:: Adult Immunizations unknown. - Social history:: Smoking status: unknown. Screenin:48 [facility] ED Fall Risk Assessment (Adult) History of falling in the last 3 months, vg1 including since admission Yes- single mechanical fall (1 pt) Confusion or Disorientation No (0 pts) Intoxicated or Sedated No (0 pts) Impaired Gait Yes (1 pt) Mobility Assist Device Used No (0 pt) Altered Elimination No (0 pt) Score/Fall Risk Level 0 - 2 = Low Risk Oriented to surroundings, Maintained a safe environment, Educated pt \T\ family on fall prevention, incl call for assistance when getting out of bed, Assessed \T\ reinforced patient's understanding of fall precautions. Abuse screen: Denies threats or abuse. Denies injuries from another. Nutritional screening: No deficits noted. Tuberculosis screening: No symptoms or risk factors identified. Assessment: 17:48 General: Appears in no apparent distress. uncomfortable, Behavior is calm, cooperative. vg1 Pain: Complains of pain in nose. Neuro: Level of Consciousness is awake, alert, obeys commands, Oriented to person, place, time, situation. Cardiovascular: Patient's skin is warm and dry. Respiratory: Airway is patent Respiratory effort is even, unlabored. GI: No signs and/or symptoms were reported involving the gastrointestinal system. : No signs and/or symptoms were reported regarding the genitourinary system. Musculoskeletal: Circulation, motion, and sensation intact. Injury Description: Laceration sustained to nose is jagged, bleeding moderately. 19:23 Reassessment: Patient appears in no apparent distress at this time. Patient and/or vg1 family updated on plan of care and expected duration. Pain level reassessed. Patient is alert, oriented x 3, equal unlabored respirations, skin warm/dry/pink. pt states h/a rating 5/10, provider notified. 20:14 Reassessment: Patient and/or family updated on plan of care and expected duration. Pain vc1 level reassessed. Patient is alert, oriented x 3, equal unlabored respirations, skin warm/dry/pink. Patient states feeling better. Patient states symptoms have improved. Vital Signs: 17:43 BP 136 / 102; Pulse 80; Resp 15; Pulse Ox 91% ; jl7 19:23 BP 113 / 71; vg1 20:15 BP 119 / 72; Pulse 91; Resp 19; Pulse Ox 98% ; vc1 ED Course: 17:42 Patient arrived in ED. jl7 17:43 Fredrick Padron MD is Attending Physician. [facility] 17:46 Triage completed. jl7 17:47 Cherry Ochoa, RN is Primary Nurse. vg1 17:48 Inserted saline lock: 20 gauge in right antecubital area, using aseptic technique. vg1 17:48 Patient has correct armband on for positive identification. Placed in gown. Bed in low vg1 position. Call light in reach. Side rails up X2. Client placed on continuous cardiac and pulse oximetry monitoring. NIBP monitoring applied. 18:29 CT Head C Spine In Process Unspecified. EDMS 18:29 CT Facial Bones W/O Con In Process Unspecified. EDMS 18:45 Chest Single View XRAY In Process Unspecified. EDMS 19:00 Arm band placed on right wrist. vc1 19:27 Amy Taylor MD is Referral Physician. drew 19:38 Primary Nurse role handed off by Cherry Ochoa, CHASE jl7 19:39 Elisha Tavera, CHASE is Primary Nurse. vc1 20:13 Assist provider with laceration repair on nose that was 2.5 cm. or less using sutures. vc1 Set up tray. Performed by Fredrick Padron MD. IV discontinued, intact, bleeding controlled, No redness/swelling at site. Pressure dressing applied. 20:17 Provided Education on: wound care; suture removal. vc1 Administered Medications: 18:55 Drug: Cephalexin PO 500 mg Route: PO; vg1 18:55 Drug: Trimethoprim-Sulfamethoxazole PO (160 mg-800 mg (DS) 1 tablet Route: PO; vg1 18:56 Drug: Ondansetron IVP 4 mg Route: IVP; Site: right antecubital; vg1 18:56 Drug: NS 0.9% IV 1000 ml Route: IV; Rate: 1 bolus; Site: right antecubital; vg1 18:59 Drug: Tetanus Toxoid,Adsorbed IM 0.5 ml {Vascular Neurologist: Já [employer] ([employer]). Exp: vg1 07/30/2023. Lot #: [id number]. } Route: IM; Site: left deltoid; 19:00 Drug: Lidocaine Infiltration (1 %) 10 ml {Note: administered by provider .} Volume: 20 as6 ml; Route: Infiltration; 19:04 Drug: ceFAZolin IVPB 2 grams Route: IVPB; Infused Over: 30 mins; Site: right vg1 antecubital; 19:47 Drug: fentaNYL (PF) IVP 50 mcg Route: IVP; Site: right antecubital; as6 19:47 Drug: Ondansetron IVP 4 mg Route: IVP; Site: right antecubital; as6 19:48 Drug: Mupirocin Topical Ointment 2 % 1 application Route: Topical; Site: affected area; as6 19:48 Drug: Rocephin IV 2 grams Route: IV; Rate: per protocol; Site: right antecubital; as6 Medication: 20:16 Vaccine Information Statement (VIS) provided today. Questions and/or concerns vc1 addressed. VIS edition date: March 27, 2021. Outcome: 19:28 Discharge ordered by . drew 20:15 Discharged to home via wheelchair, with significant other. vc1 20:15 Condition: good 20:15 Discharge instructions given to patient, significant other, Instructed on discharge instructions, follow up and referral plans. medication usage, Demonstrated understanding of instructions, follow-up care, medications, Prescriptions given X 4. 20:17 Patient left the ED. vc1 Signatures: Dispatcher [employer] [facility] Fredrick Padron MD MD cha Leal, Jahala RN RN jl7 Cherry Ochoa RN RN vg1 Wade Oliver RN RN as6 Elisha Tavera RN RN vc1
[2023-03-06] MEDS ORDERED: FENTANYL CITR 100 MCG/2 ML ONE (19:51)
[2023-03-06] MEDS ORDERED: MUPIROCIN 2% OINT 22GM TUBE TOP ONE (19:51)
[2023-03-06] MEDS ORDERED: CEFTRIAXONE 2000 MG/VIAL ONE (19:51)
[2023-03-06 20:48] VITALS: BP 119/72; O2SAT 98
--- NOTE | 2023-03-07 11:43 | EKG ---
Test Date: 2023-03-06 Test Time: 18:52:53 Surgical Instrument Repair Specialist: KIM MEASUREMENT RESULTS: Intervals: Rate: 85 ND: 214 QRSD: 88 QT: 384 QTc: 456 Bruno: P: 60 ND: 214 QRS: 6 T: 56 INTERPRETIVE STATEMENTS: Sinus rhythm with 1st degree AV block Otherwise normal ECG Compared to ECG 12/09/2015 09:34:28 First degree AV block now present Electronically Signed On 03-07-23 11:42:54 CDT by Robert Martinez
== END 2023-03-06 20:17 | disposition home or self-care (01) ==
LOC: ER 17:31
PROC: 0HQ1XZZ Repair Face Skin, External Approach (ICD-10-PCS; principal; 2023-03-06)
DX: S01.21XA Laceration without foreign body of nose, initial encounter (principal); S02.2XXA Fracture of nasal bones, initial encounter for closed fracture; F10.129 Alcohol abuse with intoxication, unspecified; E87.6 Hypokalemia; N19 Unspecified kidney failure; W18.30XA Fall on same level, unspecified, initial encounter; Z23 Encounter for immunization; I10 Essential (primary) hypertension
CPT/HCPCS: 93005; 85025; 80048; 36415; 85610; 80076; 85730; 70450; 72125; 70486; 76377; 71045; 90471; 96375; 96374; 99285; 80143; 80179; 82077; 12013; J2001; J3010; J2405 ×2; J0696; J7030; J0690